=== PATIENT | male | born 1960 | race Caucasian/White ===

== ENCOUNTER 2016-10-21 18:11 | Observation (INO) | payer MEDICARE, OTHER ==
[2016-10-21] VITALS (7 sets, daily range): BP systolic 120–147; BP diastolic 73–86; PULSE 71–95; RESP 16–18; TEMP 97.6–98.7; O2SAT 95–97
[~2016-10-21] VITALS: Ht 167.6 cm; Wt 85.5 kg
[~2016-10-21 18:11] MED LIST: ADVAI100I PO; ALLO100T PO; BACT800T5 PO; CHLO10 PO; FOLI1 PO; THIA100T PO; VITA100T15 PO
[2016-10-21] MEDS ORDERED: SIMV20TA PO (18:38)
[2016-10-21] MEDS ORDERED: IBUP800T23 PO (18:38)
[2016-10-21] MEDS ORDERED: ATEN100T PO (18:38)
[2016-10-21] MEDS ORDERED: ALLO100T PO (18:38)
[2016-10-21] MEDS ORDERED: ADVA250A INH (18:38)
[2016-10-21] MEDS ORDERED: LISI-515 PO (18:38)
[2016-10-21] MEDS ORDERED: methylPREDNISolone SOD SUCC 125 MG/2 ML VIAL IVP ONE (19:00)
[2016-10-21] MEDS ORDERED: SODIUM CHLORIDE 0.9% FLUSH 5 ML FLUSH IVF PRN (19:00)
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
[2016-10-21] MEDS: RESP: ALBUTEROL 2.5 MG/IPRATROPIUM 0.5 MG NEB (SCH) INH ×2 (19:10→23:09)
[2016-10-21 19:23] LABS: AUTOMATED NEUTROPHIL # 2.8 TH/MM3 (1.8-7.7); BASOPHIL % 0.7 % (0.0-2.0); EOSINOPHIL # 0.1 TH/MM3 (0-0.4); EOSINOPHIL % 1.7 % (0.0-4.0); HEMO FLAGS DIFF FINAL; LYMPH % 32.4 % (9.0-44.0); LYMPHOCYTE # 1.6 TH/MM3 (1.0-4.8); MEAN CELL VOLUME 93.5 FL (80.0-100.0); MEAN CORPUSCULAR HEMOGLOBIN 32.5 PG (27.0-34.0); MEAN CORPUSCULAR HGB CONC 34.8 % (32.0-36.0); MONO % 11.7 % (0.0-8.0); NEUT % 53.5 % (16.0-70.0); PLATELET COUNT 115 TH/MM3 (150-450); RED BLOOD COUNT 2.89 MIL/MM3 (4.50-5.90); RED CELL DISTRIBUTION WIDTH 12.8 % (11.6-17.2); WHITE BLOOD COUNT 5.1 TH/MM3 (4.0-11.0)
[2016-10-21 19:39] LABS: APTT (PATIENT) 30.2 SEC (24.3-30.1); PROTHROMBIN TIME - PATIENT 11.3 SEC (9.8-11.6)
--- NOTE | 2016-10-21 19:50 | RADHPO ---
EXAM DATE/TIME: 10/21/2016 19:02 [facility] COMPARISON: CT THORAX W/O CONTRAST, June 29, 2016, 22:51. INDICATIONS : Shortness of breath. MEDICAL HISTORY : Hypercholesterolemia. Hypertension. Chronic obstructive pulmonary disease. Chronic kidney disease. SURGICAL HISTORY : Tonsillectomy. Appendectomy. Rotator cuff, left. Rotator cuff, right. ENCOUNTER: Initial ACUITY: 4 - 6 days PAIN SCORE: 0/10 LOCATION: Bilateral chest FINDINGS: A single view of the chest demonstrates a chronic right-sided pleural thickening and trace fluid with subsegmental atelectasis and scarring similar to June 29, 2016. Left lung is clear. Heart size no rmal. No pneumothorax. CONCLUSION: 1. Stable chronic scarring and atelectasis right lung base compared with June 2016. No new infiltr ate. Yayo Rodriguez MD on October 21, 2016 at 19:46 Board Certified Radiologist. This report was verified electronically.
[2016-10-21 20:07] LABS: ALKALINE PHOSPHATASE 65 U/L (45-117); ALT (GPT) 64 U/L (12-78); ANION GAP 10 MEQ/L (5-15); AST (GOT) 85 U/L (15-37); BICARBONATE 22.5 MEQ/L (21.0-32.0); BLOOD UREA NITROGEN 12 MG/DL (7-18); CHLORIDE 91 MEQ/L (98-107); CREATINE KINASE 114 U/L (39-308); GLOMERULAR FILTRATION RATE 96 ML/MIN (>89); POTASSIUM 4.6 MEQ/L (3.5-5.1); TOTAL BILIRUBIN ADULT 0.4 MG/DL (0.2-1.0)
[2016-10-21 20:09] LABS: SODIUM (NA) 123 MEQ/L (136-145)
[2016-10-21] MEDS ORDERED: SODIUM CHLOR 0.9% 1000 ML INJ 1,000 ML IV SCH (20:14)
[2016-10-21 20:30] LABS: CKMB 2.6 NG/ML (0.5-3.6)
[2016-10-21] MEDS ORDERED: SODIUM CHLORIDE 0.9% FLUSH 5 ML FLUSH FLUSH PRN (21:00)
[2016-10-21] MEDS: SODIUM CHLORIDE 0.9% FLUSH 5 ML FLUSH FLUSH SCH (21:00)
[2016-10-21] MEDS ORDERED: methylPREDNISolone SOD SUCC 125 MG/2 ML VIAL IVP SCH (21:00)
[2016-10-21] MEDS ORDERED: ACETAMINOPHEN 325 MG TAB PO PRN (21:00)
[2016-10-21] MEDS ORDERED: RESP: ALBUTEROL 2.5 MG/3 ML NEB (PRN) INH (21:00)
[2016-10-21] MEDS ORDERED: ONDANSETRON HCL 4 MG/2 ML VIAL IVP PRN (21:00)
[2016-10-21] MEDS ORDERED: LEVOFLOXACIN 750 MG PREMIX INJ 150 ML IV SCH (22:00)
[2016-10-21] MEDS: BUDESONIDE-FORMOTEROL 160/4.5 MCG INHALER INH SCH (22:01)
[2016-10-21] MEDS: HEPARIN SODIUM - SQ 10,000 UNITS/ML VIAL SQ SCH (22:05)
--- NOTE | 2016-10-21 22:12 | RADHPO ---
EXAM DATE/TIME: 10/21/2016 21:29 [facility] COMPARISON: CT THORAX W/O CONTRAST, June 29, 2016, 22:51. INDICATIONS : Shortness of breath for five days. RADIATION DOSE: 17.10 CTDIvol (mGy) MEDICAL HISTORY : Chronic obstructive pulmonary disease. Hypertension. SURGICAL HISTORY : None. ENCOUNTER: Initial ACUITY: 4 - 6 days PAIN SCALE: 0/10 LOCATION: chest TECHNIQUE: Volumetric scanning of the chest was performed. Using automated exposure control and adjustment of t he mA and/or kV according to patient size, radiation dose was kept as low as reasonably achievable to obtain optimal diagnostic quality images. FINDINGS: Comparison June 2016. There is chronic right basilar pleural disease with a small loculated pleura l effusion and multiple areas of rounded atelectasis at the right lung base, especially right middle lobe. There is minimal airspace disease left lung base which may represent a small pneumonia. Moderate to severe coronary calcifications are noted. No pericardial effusion. No adenopathy. Upper abdomen reveal slight lobulation of the liver most characteristic of cirrhosis. CONCLUSION: 1. Chronic right basilar pleural disease with small effusion, pleural thickening and rounded atelecta sis. Findings are similar to June 2016. There is some new minimal infiltrate at the left base sinc e 2015 that may represent a small bronchopneumonia. Yayo Rodriguez MD on October 21, 2016 at 22:06 Board Certified Radiologist. This report was verified electronically.
[2016-10-21] MEDS ORDERED: LORazepam 1 MG TAB PO PRN (22:15)
[2016-10-21] MEDS ORDERED: FLUMAZENIL 0.5 MG/5 ML VIAL IV PUSH PRN (22:15)
[2016-10-21] MEDS ORDERED: LORazepam 2 MG/ML VIAL IV PUSH PRN ×4 (22:15)
[2016-10-21] MEDS ORDERED: LORazepam 2 MG TAB PO PRN (22:15)
[2016-10-21] MEDS: SODIUM CHLOR 0.9% 1000 ML INJ 1,000 ML IV SCH (23:24)
[2016-10-22] MEDS: methylPREDNISolone SOD SUCC 125 MG/2 ML VIAL IVP SCH ×2 (02:36→08:42)
[2016-10-22 02:40] VITALS: BP 140/78; PULSE 109; RESP 20; TEMP 98; O2SAT 97
[2016-10-22] MEDS: RESP: ALBUTEROL 2.5 MG/IPRATROPIUM 0.5 MG NEB (SCH) INH ×3 (03:08→10:57)
[2016-10-22] MEDS ORDERED: IBUPROFEN 800 MG TAB PO PRN (03:30)
--- NOTE | 2016-10-22 04:58 | EKG ---
Date Performed: 10/21/2016 Time Performed: 19:04:38 PTAGE: 56 years EKG: Sinus rhythm Normal ECG NO SIGNIFICANT CHANGE FROM PRIOR ELECTROCARDIOGRAM. PREVIOUS TRACING : 06/30/2016 01.21 DOCTOR: Chi Rodrigues Interpretating Date/Time 10/22/2016 04:57:49
[2016-10-22 05:00] VITALS: BP 151/88; PULSE 102; RESP 20; TEMP 98.4; O2SAT 96
[2016-10-22 05:20] LABS: AUTOMATED NEUTROPHIL # 2.7 TH/MM3 (1.8-7.7); BASOPHIL % 0.7 % (0.0-2.0); EOSINOPHIL % 0.1 % (0.0-4.0); HEMATOCRIT 29.7 % (39.0-51.0); HEMO FLAGS DIFF FINAL; LYMPH % 8.4 % (9.0-44.0); LYMPHOCYTE # 0.2 TH/MM3 (1.0-4.8); MEAN CELL VOLUME 94.9 FL (80.0-100.0); MEAN CORPUSCULAR HEMOGLOBIN 31.8 PG (27.0-34.0); MEAN CORPUSCULAR HGB CONC 33.5 % (32.0-36.0); MONO % 0.9 % (0.0-8.0); NEUT % 89.9 % (16.0-70.0); PLATELET COUNT 115 TH/MM3 (150-450); RED BLOOD COUNT 3.13 MIL/MM3 (4.50-5.90); RED CELL DISTRIBUTION WIDTH 13.1 % (11.6-17.2); WHITE BLOOD COUNT 2.9 TH/MM3 (4.0-11.0)
[2016-10-22 05:34] LABS: CHLORIDE 98 MEQ/L (98-107); POTASSIUM 4.6 MEQ/L (3.5-5.1); SODIUM (NA) 132 MEQ/L (136-145)
[2016-10-22 05:43] LABS: ALT (GPT) 65 U/L (12-78); ANION GAP 13 MEQ/L (5-15); BICARBONATE 20.9 MEQ/L (21.0-32.0); BLOOD UREA NITROGEN 12 MG/DL (7-18)
[2016-10-22 05:44] LABS: AST (GOT) 74 U/L (15-37); GLOMERULAR FILTRATION RATE 69 ML/MIN (>89)
[2016-10-22 05:45] LABS: TOTAL BILIRUBIN ADULT 0.5 MG/DL (0.2-1.0)
[2016-10-22 05:49] LABS: ALKALINE PHOSPHATASE 65 U/L (45-117)
[2016-10-22] MEDS: HEPARIN SODIUM - SQ 10,000 UNITS/ML VIAL SQ SCH (06:26)
[2016-10-22 06:30] VITALS: BP 156/94; PULSE 98; RESP 18; TEMP 98.6; O2SAT 95
[2016-10-22 07:09] VITALS: BP 156/94; PULSE 107; RESP 16; TEMP 98.6; O2SAT 96
[2016-10-22 07:40] VITALS: O2SAT 96
[2016-10-22 08:00] VITALS: BP 164/98; PULSE 106; RESP 18; TEMP 98.3; O2SAT 96
[2016-10-22] MEDS: SODIUM CHLORIDE 0.9% FLUSH 5 ML FLUSH FLUSH SCH (08:43)
[2016-10-22] MEDS: SODIUM CHLOR 0.9% 1000 ML INJ 1,000 ML IV SCH (08:43)
[2016-10-22] MEDS: BUDESONIDE-FORMOTEROL 160/4.5 MCG INHALER INH SCH (08:43)
[2016-10-22] MEDS ORDERED: BUDESONIDE-FORMOTEROL 160/4.5 MCG INHALER INH SCH (09:00)
[2016-10-22] MEDS ORDERED: ALLOPURINOL 100 MG TAB PO SCH (09:00)
[2016-10-22] MEDS ORDERED: PRAVASTATIN SOD 40 MG TAB PO SCH (09:00)
[2016-10-22] MEDS ORDERED: ATENOLOL 100 MG TAB PO SCH (09:00)
[2016-10-22] MEDS ORDERED: LISINOPRIL 20 MG TAB PO SCH (09:00)
--- NOTE | 2016-10-22 11:19 | HHI.DCPOC ---
Discharge Care Plan Diagnosis: (1) Hyponatremia Goals to Promote Your Health * To prevent worsening of your condition and complications * To maintain your health at the optimal level Directions to Meet Your Goals Take your medications as prescribed Follow your dietary instruction Follow activity as directed Keep your appointments as scheduled Take your immunizations and boosters as scheduled If your symptoms worsen call your PCP, if no PCP go to Urgent Care Center or Emergency Room Smoking is Dangerous to Your Health. Avoid second hand smoke Call the 24-hour hour crisis hotline for domestic abuse at Cristal Hawkins MD Oct 22, 2016 11:18
--- NOTE | 2016-10-22 11:24 | HHI.HP ---
[facility] Primary Care Physician Non-Staff Admission Diagnosis hyponatremia, COPD exacerbation, alcohol intoxication Diagnoses: Chief Complaint: Sent by primary care provider Travel History International Travel<30 Days: No Contact w/Intl Traveler <30 Da: No Traveled to Known Affected Are: No History of Present Illness This patient is a 56-year-old gentleman with a history of chronic obstructive pulmonary disease and pleural effusion. Patient did come by his ambulance because his primary care doctor was worried about pleural effusion. He had an outpatient x-ray done 5 days ago and was called with results and told to come to the hospital yesterday. Patient says he is not short of breath he had no chest pain he has chronic dyspnea which is related to his chronic Pulmonary disease and improved with his home medications. Patient says he has been doing well at home. He denies fevers and chills. Patient had images done previously which are quite similar to ones done in the emergency room on my review. Patient does have Some hyponatremia also. Patient does drink quite a bit of alcohol daily and may have chronic pancytopenia and be potomania. Overnight patient had no new complaints today. Discharge plans discussed with patient and he would like to go home Review of Systems Constitutional: DENIES: Diaphoretic episodes, Fatigue, Fever, Weight gain, Weight loss, Chills, Dizziness, Change in appetite, Night Sweats Endocrine: DENIES: Heat/cold intolerance, Polydipsia, Polyuria, Polyphagia Eyes: DENIES: Blurred vision, Diplopia, Eye inflammation, Eye pain, Vision loss , Photosensitivity, Double Vision Ears, nose, mouth, throat: DENIES: Tinnitus, Hearing loss, Vertigo, Nasal discharge, Oral lesions, Throat pain, Hoarseness, Ear Pain, Running Nose, Epistaxis, Sinus Pain, Toothache, Odynophagia Respiratory: DENIES: Apneas, Cough, Snoring, Wheezing, Hemoptysis, Sputum production, Shortness of breath Cardiovascular: DENIES: Chest pain, Palpitations, Syncope, Dyspnea on Exertion , PND, Lower Extremity Edema, Orthopnea, Claudication Gastrointestinal: DENIES: Abdominal pain, Black stools, Bloody stools, Constipation, Diarrhea, Nausea, Vomiting, Difficulty Swallowing, Anorexia Genitourinary: DENIES: Sexual dysfunction, Urinary frequency, Urinary incontinence, Urgency, Hematuria, Dysuria, Nocturia, Penile Discharge, Testicular Pain, Testicular Swelling Musculoskeletal: DENIES: Joint pain, Muscle aches, Stiffness, Joint Swelling, Back pain, Neck pain Integumentary: DENIES: Abnormal pigmentation, Nail changes, Pruritus, Rash Hematologic/lymphatic: DENIES: Bruising, Lymphadenopathy Immunologic/allergic: DENIES: Eczema, Urticaria Neurologic: DENIES: Abnormal gait, Headache, Localized weakness, Paresthesias, Seizures, Speech Problems, Tremor, Poor Balance Psychiatric: DENIES: Anxiety, Confusion, Mood changes, Depression, Hallucinations, Agitation, Suicidal Ideation, Homicidal Ideation, Delusions Past Family Social History Past Medical History Chronic pleural effusion Chronic alcoholism Pancytopenia Hypertension COPD Past Surgical History Orthopedic surgeries Appendectomy Reported Medications Reviewed in the medical record, nothing new Allergies: Coded Allergies: No Known Allergies (Verified , 10/21/16) Active Ordered Medications Reviewed in the medical record Family History Family history of hypertension Social History Patient does drink quite a bit (alcohol 6 pack a day), no current tobacco Lives alone Physical Exam Vital Signs Vital Signs Date Time Temp Pulse Resp B/P Pulse Ox O2 Delivery O2 Flow Rate FiO2 10/22/16 08:00 98.3 106 18 164/98 96 10/22/16 07:40 96 21 10/22/16 07:09 98.6 107 16 156/94 96 Room Air 10/22/16 07:08 16 96 Room Air 10/22/16 06:30 98.6 98 18 156/94 95 Room Air 10/22/16 05:00 98.4 102 20 151/88 96 Room Air 10/22/16 03:30 20 96 Room Air 10/22/16 02:40 98.0 109 20 140/78 97 Room Air 10/21/16 23:30 18 95 Room Air 10/21/16 23:30 97.6 95 18 147/78 95 Room Air 10/21/16 21:30 82 18 137/73 95 Room Air 10/21/16 20:30 74 18 120/74 95 Room Air 10/21/16 19:30 18 96 Room Air 10/21/16 19:30 98.2 71 18 142/86 96 Room Air 10/21/16 19:15 96 Room Air 10/21/16 19:15 96 Room Air 10/21/16 19:08 96 21 10/21/16 18:30 16 97 Room Air 10/21/16 18:25 98.7 75 16 129/79 97 Physical Exam GENERAL: This is a well-nourished, well-developed patient, in no apparent distress. SKIN: No rashes, ecchymoses or lesions. Cool and dry. HEAD: Atraumatic. Normocephalic. No temporal or scalp tenderness. EYES: Pupils equal round and reactive. Extraocular motions intact. No scleral icterus. No injection or drainage. ENT: Nose without bleeding, purulent drainage or septal hematoma. Throat without erythema, tonsillar hypertrophy or exudate. Uvula midline. Airway patent. NECK: Trachea midline. No JVD or lymphadenopathy. Supple, nontender, no meningeal signs. CARDIOVASCULAR: Regular rate and rhythm without murmurs, gallops, or rubs. RESPIRATORY: Clear to auscultation. Breath sounds equal bilaterally. No wheezes , rales, or rhonchi. GASTROINTESTINAL: Abdomen soft, non-tender, nondistended. No hepato-splenomegaly , or palpable masses. No guarding. MUSCULOSKELETAL: Extremities without clubbing, cyanosis, or edema. No joint tenderness, effusion, or edema noted. No calf tenderness. Negative Homans sign bilaterally. NEUROLOGICAL: Awake and alert. Cranial nerves II through XII intact. Motor and sensory grossly within normal limits. Five out of 5 muscle strength in all muscle groups. Normal speech. Laboratory Laboratory Tests Test 10/21/16 10/22/16 19:10 05:05 White Blood Count 5.1 2.9 Red Blood Count 2.89 3.13 Hemoglobin 9.4 10.0 Hematocrit 27.0 29.7 Mean Corpuscular Volume 93.5 94.9 Mean Corpuscular Hemoglobin 32.5 31.8 Mean Corpuscular Hemoglobin 34.8 33.5 Concent Red Cell Distribution Width 12.8 13.1 Platelet Count 115 115 Mean Platelet Volume 7.0 6.6 Neutrophils (%) (Auto) 53.5 89.9 Lymphocytes (%) (Auto) 32.4 8.4 Monocytes (%) (Auto) 11.7 0.9 Eosinophils (%) (Auto) 1.7 0.1 Basophils (%) (Auto) 0.7 0.7 Neutrophils # (Auto) 2.8 2.7 Lymphocytes # (Auto) 1.6 0.2 Monocytes # (Auto) 0.6 0.0 Eosinophils # (Auto) 0.1 0.0 Basophils # (Auto) 0.0 0.0 CBC Comment DIFF FINAL DIFF FINAL Differential Comment Prothrombin Time 11.3 Prothromb Time International 1.0 Ratio Activated Partial 30.2 Thromboplast Time Sodium Level 123 132 Potassium Level 4.6 4.6 Chloride Level 91 98 Carbon Dioxide Level 22.5 20.9 Anion Gap 10 13 Blood Urea Nitrogen 12 12 Creatinine 0.83 1.10 Estimat Glomerular Filtration 96 69 Rate Random Glucose 83 180 Calcium Level 8.0 8.8 Total Bilirubin 0.4 0.5 Aspartate Amino Transf 85 74 (AST/SGOT) Alanine Aminotransferase 64 65 (ALT/SGPT) Alkaline Phosphatase 65 65 Total Creatine Kinase 114 Creatine Kinase MB 2.6 Troponin I LESS THAN 0.02 B-Type Natriuretic Peptide 85 Total Protein 7.4 8.0 Albumin 3.6 3.7 Ethyl Alcohol Level 198 Date/Time Procedure Status Source Growth 10/21/16 19:10 Influenza Types A,B Antigen (ANNEMARIE) - Final Complete Nasal Washing NEGATIVE FOR FLU A AND B ANTIGEN.... Result Diagram: 10/22/16 0505 10/22/16 0505 Imaging Last Impressions Chest X-Ray 10/21/16 1858 Signed Impressions: Service Date/Time: Friday, October 21, 2016 19:02 - CONCLUSION: 1. Stable chronic scarring and atelectasis right lung base compared with June 2016. No new infiltrate. Yayo Rodriguez MD Chest CT 10/21/16 0000 Signed Impressions: Service Date/Time: Friday, October 21, 2016 21:29 - CONCLUSION: 1. Chronic right basilar pleural disease with small effusion, pleural thickening and rounded atelectasis. Findings are similar to June 2016. There is some new minimal infiltrate at the left base since 2016 that may represent a small bronchopneumonia. Yayo Rodriguez MD Assessment and Plan Problem List: (1) Hyponatremia ICD Code: E87.1 Status: Acute Plan: Resolved with IV hydration (2) Pleural effusion ICD Code: J90 Status: Acute Plan: These are stable, small and asymptomatic. 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 Discussed at length with the patient was quite agreeable (3) Pancytopenia ICD Code: D61.818 Status: Acute Plan: Chronic, likely due to alcoholism, continue outpatient surveillance Assessment and Plan Discharge home Activity unrestricted Diet heart healthy Code Status Full code Discussed Condition With Patient, PT Cristal Hawkins MD Oct 22, 2016 11:24
--- NOTE | 2016-10-22 13:43 | EKG ---
Date Performed: 10/22/2016 Time Performed: 06:00:44 PTAGE: 56 years EKG: Sinus tachycardia Normal ECG except for rate COMPARED TO PRIOR ELECTROCARDIOGRAM, Rate has increased. PREVIOUS TRACING : 10/21/2016 19.04 DOCTOR: Chi Rodrigues Interpretating Date/Time 10/22/2016 13:42:29
== END 2016-10-22 11:25 | disposition home or self-care (01) ==
LOC: PHED 18:11 → PHEDA 20:51 → INTOOBSV 20:51 → PHEDH 10-22 00:51 → PH3B 10-22 08:04
PROVIDERS: ADMIT Hospitalist; ATTEND Hospitalist
DX: E87.1 Hypo-osmolality and hyponatremia (principal); F10.120 Alcohol abuse with intoxication, uncomplicated; J44.1 Chronic obstructive pulmonary disease with (acute) exacerbation; J44.0 Chronic obstructive pulmonary disease with (acute) lower respiratory infection; J18.0 Bronchopneumonia, unspecified organism; J90 Pleural effusion, not elsewhere classified; J98.11 Atelectasis; I12.9 Hypertensive chronic kidney disease with stage 1 through stage 4 chronic kidney disease, or unspecified chronic kidney disease; N18.9 Chronic kidney disease, unspecified; D61.818 Other pancytopenia; E78.00 Pure hypercholesterolemia, unspecified; H40.9 Unspecified glaucoma; M10.9 Gout, unspecified
CPT/HCPCS: 71010; 71250; 80053; 80320; 82550; 82552; 83880; 84484; 85025; 85610; 85730; 87804; 93005; 94640; 94664; 96374; 97162; 99285; J1644; J1956; J2060; J2930; J7030

== ENCOUNTER 2016-12-01 20:55 | Emergency (ER) | payer OTHER ==
[~2016-12-01 20:55] MED LIST changes: +ADVA250A INH; -ADVAI100I PO; +ATEN100T PO; -BACT800T5 PO; -CHLO10 PO; -FOLI1 PO; +IBUP800T23 PO; +LISI-515 PO; +SIMV20TA PO; -THIA100T PO; -VITA100T15 PO
== END 2016-12-01 21:04 | disposition left against medical advice (07) ==
LOC: PHED 20:55
DX: R68.89 Other general symptoms and signs (principal)
CPT/HCPCS: 99281

== ENCOUNTER → 2017-01-13 | Day surgery (SDC) | payer OTHER ==
[~2017-01-13] MED LIST changes: +BUPIVACAINE HCL PF 0.75% 30 ML VIAL ONE; +LACTATED RINGER'S 1000 ML INJ 1,000 ML ONE; +LIDOCAINE 1.5%/EPINEPHrine 1:200,000 PF SOLN 30 ML AMP ONE; +MIDAZOLAM HCL 5 MG/ML VIAL (1 ML) ONE; +PROPOFOL 200 MG/20 ML AMP IV ONE; +ceFAZolin 2 GM PREMIX 50 ML ONE
--- NOTE | 2017-01-14 07:10 | MP ---
cc: CADENCE SALGADO M.D. DATE OF SURGERY 01/13/2017 PREOPERATIVE DIAGNOSES Left shoulder rotator cuff tear. Left shoulder impingement syndrome. Left shoulder SLAP labral tear with biceps tear. POSTOPERATIVE DIAGNOSES Left shoulder rotator cuff tear. Left shoulder impingement syndrome. Left shoulder SLAP labral tear with biceps tear. PROCEDURE Left shoulder arthroscopic rotator cuff repair. Left shoulder arthroscopic subacromial decompression. Left shoulder arthroscopic extensive debridement of SLAP labral and biceps tear. SURGEON Dr. Cadence Salgado PHYSIOTHERAPIST'S ASSISTANT Tee Fernández PA-C ANESTHESIA General with interscalene block. ESTIMATED BLOOD LOSS Less than 10 cc. COMPLICATIONS None. IMPLANTS USED Arthrex. JUSTIFICATION This patient is a 56-year-old male who injured his left shoulder. He has had persistence of his pain and weakness in regards to this condition with failure of conservative. Clinical exam as well as MRI confirmed the above-named findings. The patient was counseled as to the risks, benefits and alternatives of the above-named proposed surgical procedure. He did wish to proceed with surgery. PROCEDURE IN DETAIL Written consent was obtained. The patient was identified by name. A scalene nerve block was administered to the left upper extremity by the anesthesiologist. The patient was taken to the operating room and general anesthesia was administered as well as 2 grams of IV Ancef. The patient was carefully turned to a right lateral decubitus position. A lateral arm roll was placed and all bony prominences and pressure points were well-padded. The patient's neck was carefully positioned, was carefully monitored and kept neutral. An arthroscopic arm rodríguez was gently applied to the left upper extremity with 10 pounds of traction placed, the left shoulder prepped and draped using isopropyl alcohol and Hibiclens solution and DuraPrep solution. A standard posterior and anterior glenohumeral arthroscopic portal was established. The glenohumeral joint revealed extensive evidence of labral tearing along the anterior, superior and posterior portions. There was evidence of partial biceps tendon tearing with fraying and fragmentation. An arthroscopic shaver was introduced in through the anterior portal and extensive debridement of the labrum was performed from the anterior, superior and posterior positions. There was evidence of biceps tearing which was also debrided. Grade 2 chondromalacia was noted of the glenohumeral joint. There was a massive rotator cuff tendon tear involving the supraspinatus and infraspinatus tendon. There was complete delamination of the tendon with a split longitudinal pattern. At this point the bur was used to perform a subacromial decompression. A shaver was used to perform bursectomy. The bur was used to perform an acromioplasty and the cautery device was used to release the coracoacromial ligament. The bur was used to decorticate the greater tuberosity in preparation for rotator cuff tendon repair. An Arthrex Scorpion device was then used to shuttle #2 FiberTape suture from a medial row Bio-SwiveLock anchor. The suture was set through the undersurface leaflet of the tendon and then a separate pass through the superior aspect. A #2 FiberLink was placed along the posterior portion as well. An anterior medial anchor was placed and again suture from anchor to include a FiberTape was passed through the inferior and subsequently superior leaflet. At this point an Arthrex double row SpeedBridge construct was then created with implantation of a posterior lateral and anterior lateral anchor. After appropriate tensioning of sutures and implantation of lateral row anchors, the rotator cuff repair was probed and noted to have good stability and fixation. The arthroscopic portals were closed with 3-0 Prolene sutures. Sterile dressings were applied. The patient was placed in a sling and swath immobilizer. He tolerated the procedure well. There were no intraoperative complications noted. Tee Fernández, physician operations manager assistant certified, was present during the entire procedure to include patient positioning and the procedure itself. The medical necessity of a physician operations manager assistant was indicated in this case due to the complexity of the procedure. He assisted with appropriate manipulation of the arm and also manipulation of the camera. He assisted with shuttling of sutures and also implantation of suture anchors for the purpose or rotator cuff tendon repair. Cadence Salgado MD JWM/SSB /3:44 PM /6:45 AM
== END | disposition home or self-care (01) ==
LOC: ESDC 13:08
PROVIDERS: ATTEND Orthopaedic Surgery Sports Medicine
DX: M75.122 Complete rotator cuff tear or rupture of left shoulder, not specified as traumatic (principal); M75.42 Impingement syndrome of left shoulder; S43.432A Superior glenoid labrum lesion of left shoulder, initial encounter; S46.212A Strain of muscle, fascia and tendon of other parts of biceps, left arm, initial encounter
CPT/HCPCS: 01630; 01991; 29823; 29826; 29827; 64417; C1713; J0690; J2250; J7120

== ENCOUNTER 2017-04-25 16:18 | Inpatient (IN) | payer OTHER, MEDICARE ==
[2017-04-25] VITALS (8 sets, daily range): BP systolic 93–172; BP diastolic 55–107; PULSE 62–70; RESP 16–20; TEMP 96.4–98.7; O2SAT 96–99
[~2017-04-25] VITALS: Ht 167.6 cm; Wt 87.2 kg
[~2017-04-25 16:18] MED LIST changes: -BUPIVACAINE HCL PF 0.75% 30 ML VIAL ONE; -LACTATED RINGER'S 1000 ML INJ 1,000 ML ONE; -LIDOCAINE 1.5%/EPINEPHrine 1:200,000 PF SOLN 30 ML AMP ONE; -MIDAZOLAM HCL 5 MG/ML VIAL (1 ML) ONE; -PROPOFOL 200 MG/20 ML AMP IV ONE; -ceFAZolin 2 GM PREMIX 50 ML ONE
[2017-04-25] MEDS ORDERED: SODIUM CHLORIDE 0.9% FLUSH 10 ML FLUSH IVF PRN (16:30)
[2017-04-25] MEDS ORDERED: SODIUM CHLOR 0.9% 1000 ML INJ 1,000 ML IV ONE (16:30)
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
[2017-04-25 16:47] LABS: AUTOMATED NEUTROPHIL # 6.6 TH/MM3 (1.8-7.7); BASOPHIL # 0.2 TH/MM3 (0-0.2); BASOPHIL % 2.1 % (0.0-2.0); EOSINOPHIL % 0.3 % (0.0-4.0); HEMATOCRIT 32.9 % (39.0-51.0); LYMPH % 17.6 % (9.0-44.0); LYMPHOCYTE # 1.7 TH/MM3 (1.0-4.8); MEAN CELL VOLUME 87.8 FL (80.0-100.0); MEAN CORPUSCULAR HEMOGLOBIN 29.5 PG (27.0-34.0); MEAN CORPUSCULAR HGB CONC 33.6 % (32.0-36.0); MONO % 12.9 % (0.0-8.0); NEUT % 67.1 % (16.0-70.0); PLATELET COUNT 248 TH/MM3 (150-450); RED BLOOD COUNT 3.75 MIL/MM3 (4.50-5.90); RED CELL DISTRIBUTION WIDTH 15.5 % (11.6-17.2); WHITE BLOOD COUNT 9.8 TH/MM3 (4.0-11.0)
[2017-04-25 16:50] LABS: HEMO FLAGS DIFF FINAL
--- NOTE | 2017-04-25 17:20 | RADRPT ---
EXAM DATE/TIME: 04/25/2017 16:44 [facility] COMPARISON: No previous studies available for comparison. INDICATIONS : Fall, pelvic area pain MEDICAL HISTORY : Chronic obstructive pulmonary disease. SURGICAL HISTORY : None. ENCOUNTER: Initial ACUITY: 2 days PAIN SCORE: 8/10 LOCATION: Bilateral pelvis FINDINGS: Single AP view of the pelvis. Bone alignment within normal limits. No evidence of fracture. CONCLUSION: No evidence of fracture. Vahid Collins MD on April 25, 2017 at 17:10 Board Certified Radiologist. This report was verified electronically.
--- NOTE | 2017-04-25 17:23 | RADRPT ---
EXAM DATE/TIME: 04/25/2017 16:47 [facility] COMPARISON: SPINE LUMBAR LTD (AP & LAT), November 25, 2009, 21:59. INDICATIONS : Fall, low back pain MEDICAL HISTORY : None. SURGICAL HISTORY : None. ENCOUNTER: Initial ACUITY: 2 days PAIN SCORE: 8/10 LOCATION: Bilateral low back FINDINGS: 4 views lumbar spine. Minimal superior end plate concavity of L3 and mild superior endplate concavity of T12 indicating age indeterminate minimal compression fracture deformities. No evidence of bony re tropulsion. These findings were not seen on the prior study of 2009. Small endplate osteophytes at mu ltiple levels of the lumbar spine. Moderate severity facet hypertrophy at L4-5 and L5-S1. Vacuum phen omenon in the L4-5 disc. Diffuse aortic calcification. CONCLUSION: Minimal age-indeterminate superior endplate compression fracture deformities at L3 and T12. Degenerat marcelle findings with moderate severity lower lumbar spine facet arthrosis. Vahid Collins MD on April 25, 2017 at 17:19 Board Certified Radiologist. This report was verified electronically.
[2017-04-25 17:42] LABS: CHLORIDE 91 MEQ/L (98-107); POTASSIUM 4.1 MEQ/L (3.5-5.1); SODIUM (NA) 129 MEQ/L (136-145)
[2017-04-25 17:47] LABS: ANION GAP 15 MEQ/L (5-15); BICARBONATE 22.8 MEQ/L (21.0-32.0); BLOOD UREA NITROGEN 43 MG/DL (7-18)
[2017-04-25 17:50] LABS: ALT (GPT) 43 U/L (12-78); AST (GOT) 75 U/L (15-37); GLOMERULAR FILTRATION RATE 11 ML/MIN (>89)
[2017-04-25 17:51] LABS: TOTAL BILIRUBIN ADULT 1.2 MG/DL (0.2-1.0)
[2017-04-25 17:53] LABS: ALKALINE PHOSPHATASE 107 U/L (45-117)
[2017-04-25 18:27] LABS: GLUCOSE,URINE NEG (NEG); KETONE, URINE TRACE mg/dL (NEG); NITRITE,URINE NEG (NEG); PH, URINE 5.5 (5.0-8.5)
[2017-04-25 18:29] LABS: BLOOD, URINE MOD (NEG); METHOD OF COLLECTION CLEAN CATCH; URINE COLOR YELLOW (YELLW/STRAW)
[2017-04-25 18:38] LABS: COMMENT (UR) CULT NOT INDICATED; COMMENT2 (UR) MUCOUS PRESENT; CULTURE IF INDICATED CULT NOT INDICATED; HYALINE CAST, URINE 0-2 /lpf (RARE); SQUAMOUS EPITHELIAL CELL URINE 0-5 /hpf (0-5); WBC, URINE 0-2 /hpf (0-5)
[2017-04-25 18:39] LABS: TRANSITIONAL EPI CELLS, URINE 0-5 /hpf
[2017-04-25] MEDS ORDERED: SODIUM CHLORIDE 0.9% FLUSH 10 ML FLUSH IV FLUSH PRN (19:00)
[2017-04-25] MEDS: SODIUM CHLOR 0.9% 1000 ML INJ 1,000 ML IV SCH (19:55)
[2017-04-25] MEDS: SODIUM CHLORIDE 0.9% FLUSH 10 ML FLUSH IV FLUSH SCH (21:00)
[2017-04-25] MEDS: ACETAMINOPHEN/HYDROcodone 325 MG/10 MG TAB PO PRN (21:40)
[2017-04-25] MEDS ORDERED: LORazepam 2 MG TAB PO PRN (22:15)
[2017-04-25] MEDS ORDERED: LORazepam 1 MG TAB PO PRN (22:15)
[2017-04-25] MEDS ORDERED: LORazepam 2 MG/ML VIAL IV PUSH PRN ×4 (22:15)
[2017-04-25] MEDS ORDERED: FLUMAZENIL 0.5 MG/5 ML VIAL IV PUSH PRN (22:15)
[2017-04-25] MEDS ORDERED: THIAMINE INJ 100 MG in SODIUM CHLORIDE 0.9% INJ 100 ML IV SCH (23:00)
[2017-04-26] VITALS (7 sets, daily range): BP systolic 109–175; BP diastolic 75–98; PULSE 59–68; RESP 16–20; TEMP 96.6–97.2; O2SAT 96–100
[2017-04-26] MEDS: ACETAMINOPHEN/HYDROcodone 325 MG/10 MG TAB PO PRN ×4 (01:25→23:14)
[2017-04-26] MEDS: MULTIVITAMIN INJ 10 ML, FOLIC ACID INJ 1 MG in SODIUM CHLORID 0.9% 500 ML INJ 500 ML IV SCH (05:44)
[2017-04-26] MEDS: SODIUM CHLOR 0.9% 1000 ML INJ 1,000 ML IV SCH ×3 (05:44→23:46)
[2017-04-26] MEDS: SODIUM CHLORIDE 0.9% FLUSH 10 ML FLUSH IV FLUSH SCH ×2 (09:00→21:00)
[2017-04-26] MEDS: PRAVASTATIN SOD 40 MG TAB PO SCH (09:09)
--- NOTE | 2017-04-26 09:34 | HHI.HP ---
[facility] Service [facility] Primary Care Physician No Primary Care Physician Admission Diagnosis acute renal failure Diagnoses: Travel History International Travel<30 Days: No Contact w/Intl Traveler <30 Da: No Traveled to Known Affected Are: No History of Present Illness 56-year-old male who presented to the emergency room for complaint of some balance and fall. He landed on his buttocks. He denied loss of consciousness. The patient is alcoholic. He states he quit drinking 7 or 8 days ago. He states he went through withdrawal at home. He denies any history of DTs. Evaluation in the emergency room revealed acute renal failure with a creatinine of 5. Patient reports has not been feeling well at home and has not been eating or drinking well. Review of Systems Constitutional: DENIES: Fever, Chills Eyes: DENIES: Vision loss Respiratory: DENIES: Cough, Shortness of breath Cardiovascular: DENIES: Chest pain, Palpitations Gastrointestinal: DENIES: Nausea, Vomiting Musculoskeletal: COMPLAINS OF: Back pain Neurologic: COMPLAINS OF: Poor Balance Past Family Social History Past Medical History Alcohol dependence Hypertension Gout Cirrhosis Past Surgical History Appendectomy Tonsillectomy Bilateral rotator cuff repair Reported Medications Reported Meds & Active Scripts Active Reported Simvastatin 20 Mg Tab 20 Mg PO DAILY Allopurinol 100 Mg Tab 100 Mg PO DAILY Atenolol 100 Mg Tab 100 Mg PO DAILY Lisinopril 20 Mg Tab 20 Mg PO BID Allergies: Coded Allergies: No Known Allergies (Verified , 04/25/17) Family History Reviewed and noncontributory. Social History Patient states he quit smoking 4 years ago. States he quit drinking alcohol 7 or 8 days ago. Normally drinks 6-12 beers a day. He denies illicit drug use. Physical Exam Vital Signs Vital Signs Date Time Temp Pulse Resp B/P Pulse Ox O2 Delivery O2 Flow Rate FiO2 04/26/17 04:08 97.0 60 20 175/98 100 04/26/17 02:25 20 04/26/17 01:03 97.0 61 16 124/79 98 04/26/17 00:31 59 04/25/17 22:47 139/93 04/25/17 21:01 96.4 67 20 167/107 98 04/25/17 20:10 98.7 67 18 108/77 98 Room Air 04/25/17 18:55 98.6 66 18 172/76 98 Room Air 04/25/17 17:50 62 20 118/68 97 04/25/17 17:09 66 16 100/55 74 18 106/60 72 16 93/58 04/25/17 16:38 96 04/25/17 16:25 98.1 70 20 109/59 99 Physical Exam GENERAL: This is a well-nourished, well-developed patient, in no acute distress. SKIN: No rashes, ecchymoses or lesions. Cool and dry. HEAD: Atraumatic. Normocephalic. No temporal or scalp tenderness. EYES: Pupils equal round and reactive. ENT: Nose without drainage. Throat without erythema, tonsillar hypertrophy or exudate. Uvula midline. Airway patent. NECK: Trachea midline. No JVD or lymphadenopathy. Supple, nontender, no meningeal signs. CARDIOVASCULAR: Regular rate and rhythm without murmurs, gallops, or rubs. RESPIRATORY: Clear to auscultation. Breath sounds equal bilaterally. No wheezes , rales, or rhonchi. GASTROINTESTINAL: Abdomen soft, non-tender, nondistended. No hepato-splenomegaly , or palpable masses. No guarding. MUSCULOSKELETAL: Some tenderness to palpation over the lumbar area NEUROLOGICAL: Awake and alert. Cranial nerves II through XII intact. Motor and sensory grossly within normal limits. Five out of 5 muscle strength in all muscle groups. Normal speech. Laboratory Laboratory Tests Test 04/25/17 04/25/17 04/25/17 16:35 17:20 18:10 White Blood Count 9.8 Red Blood Count 3.75 Hemoglobin 11.1 Hematocrit 32.9 Mean Corpuscular Volume 87.8 Mean Corpuscular Hemoglobin 29.5 Mean Corpuscular Hemoglobin 33.6 Concent Red Cell Distribution Width 15.5 Platelet Count 248 Mean Platelet Volume 6.9 Neutrophils (%) (Auto) 67.1 Lymphocytes (%) (Auto) 17.6 Monocytes (%) (Auto) 12.9 Eosinophils (%) (Auto) 0.3 Basophils (%) (Auto) 2.1 Neutrophils # (Auto) 6.6 Lymphocytes # (Auto) 1.7 Monocytes # (Auto) 1.3 Eosinophils # (Auto) 0.0 Basophils # (Auto) 0.2 CBC Comment DIFF FINAL Differential Comment Sodium Level 129 Potassium Level 4.1 Chloride Level 91 Carbon Dioxide Level 22.8 Anion Gap 15 Blood Urea Nitrogen 43 Creatinine 5.30 Estimat Glomerular Filtration 11 Rate Random Glucose 84 Calcium Level 10.0 Total Bilirubin 1.2 Aspartate Amino Transf 75 (AST/SGOT) Alanine Aminotransferase 43 (ALT/SGPT) Alkaline Phosphatase 107 Total Protein 9.5 Albumin 4.6 Ethyl Alcohol Level LESS THAN 3 Urine Collection Type CLEAN CATCH Urine Color YELLOW Urine Turbidity SLIGHT Urine pH 5.5 Urine Specific [place] 1.020 Urine Protein 100 Urine Glucose (UA) NEG Urine Ketones TRACE Urine Occult Blood MOD Urine Nitrite NEG Urine Bilirubin NEG Urine Leukocyte Esterase NEG Urine WBC 0-2 Urine Squamous Epithelial 0-5 Cells Urine Transitional Epithelial 0-5 Cells Urine Amorphous Sediment MOD Urine Hyaline Casts 0-2 Microscopic Urinalysis Comment CULT NOT INDICATED Urine Collection Time 1810 Result Diagram: 04/25/17 1635 04/25/17 1720 Imaging Last Impressions Pelvis X-Ray 04/25/17 0000 Signed Impressions: Service Date/Time: Tuesday, April 25, 2017 16:44 - CONCLUSION: No evidence of fracture. Vahid Collins MD Lumbar Spine X-Ray 04/25/17 0000 Signed Impressions: Service Date/Time: Tuesday, April 25, 2017 16:47 - CONCLUSION: Minimal age-indeterminate superior endplate compression fracture deformities at L3 and T12. Degenerative findings with moderate severity lower lumbar spine facet arthrosis. Vahid Collins MD Assessment and Plan Problem List: (1) Acute renal failure ICD Code: N17.9 Status: Acute Plan: This is likely due to prerenal azotemia from dehydration. Patient has been going through alcohol withdrawal at home. Continue aggressive fluid hydration. Increase IV fluid to 125 cc/h Avoid nephrotoxins Follow BMP in a.m. (2) Compression deformity of vertebra ICD Code: M43.9 Status: Acute Plan: Indeterminate age compression fractures. Pain management Physical therapy (3) Alcohol abuse ICD Code: F10.10 Status: Chronic Plan: Patient reports he went through withdrawal at home. States he quit drinking 7-8 days prior to admission Rally pack CIWA protocol. Does not appear to be withdrawing currently. (4) Hypertension ICD Code: I10 Status: Chronic Plan: Continue home dose of atenolol. Hold lisinopril for now given renal failure. Monitor blood pressures. Discussed Condition With Dr. Virgen Physician Certification 2 Midnight Certification Type: Admission for Inpatient Services Order for Inpatient Services The services are ordered in accordance with Medicare regulations or non- Medicare payer requirements, as applicable. In the case of services not specified as inpatient-only, they are appropriately provided as inpatient services in accordance with the 2-midnight benchmark. Estimated LOS (days): 3 days is the estimated time the patient will need to remain in the hospital, assuming treatment plan goals are met and no additional complications. Post-Hospital Plan: Not yet determined Problem Qualifiers (1) Acute renal failure: Qualified Code: N17.9 - Acute renal failure, unspecified acute renal failure type Reinaldo Castro MD Apr 26, 2017 09:34
[2017-04-26] MEDS ORDERED: INFLUENZA VIRUS VACCINE (QUADRIVALENT) 0.5 ML SYR IM ONE (10:00)
[2017-04-26] MEDS: ATENOLOL 100 MG TAB PO SCH (10:10)
[2017-04-26 11:11] LABS: AUTOMATED NEUTROPHIL # 3.5 TH/MM3 (1.8-7.7); BASOPHIL # 0.1 TH/MM3 (0-0.2); BASOPHIL % 0.9 % (0.0-2.0); EOSINOPHIL # 0.1 TH/MM3 (0-0.4); HEMATOCRIT 30.5 % (39.0-51.0); HEMO FLAGS DIFF FINAL; LYMPH % 18.7 % (9.0-44.0); LYMPHOCYTE # 1.1 TH/MM3 (1.0-4.8); MEAN CELL VOLUME 89.7 FL (80.0-100.0); MEAN CORPUSCULAR HEMOGLOBIN 29.3 PG (27.0-34.0); MEAN CORPUSCULAR HGB CONC 32.6 % (32.0-36.0); MONO % 14.9 % (0.0-8.0); NEUT % 64.5 % (16.0-70.0); PLATELET COUNT 162 TH/MM3 (150-450); RED CELL DISTRIBUTION WIDTH 14.7 % (11.6-17.2); WHITE BLOOD COUNT 5.6 TH/MM3 (4.0-11.0)
[2017-04-26 11:19] LABS: POTASSIUM 3.6 MEQ/L (3.5-5.1)
[2017-04-26 11:37] LABS: BICARBONATE 22.7 MEQ/L (21.0-32.0)
[2017-04-26] MEDS: ACETAMINOPHEN/HYDROcodone 325 MG/5 MG TAB PO PRN ×2 (14:26→18:45)
--- NOTE | 2017-04-26 16:13 | RADRPT ---
EXAM DATE/TIME: 04/26/2017 14:23 [facility] COMPARISON: US KIDNEY/RENAL/BLADDER, June 30, 2016, 18:39. INDICATIONS : Increased BUN/creatnine. MEDICAL HISTORY : Hypercholesterolemia. Hypertension. Arthritis. Glaucoma. Reading glasses. Head injury. Dizziness. Beny ateral pleural effusion. COPD. Wheezing. Liver failure. Chronic kidney disease. GOUT. SURGICAL HISTORY : Tonsillectomy. Appendectomy. Left arm repair. ENCOUNTER: Subsequent ACUITY: 1 day PAIN SCORE: 0/10 LOCATION: Bilateral flank MEASUREMENTS: RIGHT KIDNEY: 10.8 x 4.2 x 5.3 cm LEFT KIDNEY: 11.1 x 4.1 x 5.5 cm FINDINGS: RIGHT KIDNEY: Renal cortex is normal in thickness and echotexture. No hydronephrosis, stone, or mass. LEFT KIDNEY: Renal cortex is normal in thickness and echotexture. No hydronephrosis, stone, or mass. An 8 mm exop hytic cortical cyst involving the lower pole. BLADDER: Totally decompressed and contains a Snow balloon. CONCLUSION: No obstruction. Urinary bladder totally decompressed. Karlos Streeter Jr., MD on April 26, 2017 at 16:07 Board Certified Radiologist. This report was verified electronically.
[2017-04-26] MEDS ORDERED: ZOLPIDEM TARTRATE 5 MG TAB PO ONE (23:30)
[2017-04-27] VITALS (8 sets, daily range): BP systolic 119–161; BP diastolic 82–104; PULSE 63–77; RESP 18–20; TEMP 96.6–98.3; O2SAT 97–100
[2017-04-27] MEDS: ACETAMINOPHEN/HYDROcodone 325 MG/10 MG TAB PO PRN ×5 (04:06→20:31)
[2017-04-27 05:35] LABS: HEMATOCRIT 30.6 % (39.0-51.0); MEAN CELL VOLUME 88.8 FL (80.0-100.0); MEAN CORPUSCULAR HEMOGLOBIN 29.4 PG (27.0-34.0); MEAN CORPUSCULAR HGB CONC 33.1 % (32.0-36.0); PLATELET COUNT 157 TH/MM3 (150-450); RED BLOOD COUNT 3.45 MIL/MM3 (4.50-5.90); RED CELL DISTRIBUTION WIDTH 14.6 % (11.6-17.2); REVIEW FLAG FINAL; WHITE BLOOD COUNT 3.6 TH/MM3 (4.0-11.0)
[2017-04-27] MEDS: THIAMINE INJ 100 MG in SODIUM CHLORIDE 0.9% INJ 100 ML IV SCH (05:38)
[2017-04-27] MEDS: SODIUM CHLOR 0.9% 1000 ML INJ 1,000 ML IV SCH ×3 (05:39→21:28)
[2017-04-27] MEDS: MULTIVITAMIN INJ 10 ML, FOLIC ACID INJ 1 MG in SODIUM CHLORID 0.9% 500 ML INJ 500 ML IV SCH (05:39)
[2017-04-27 05:53] LABS: POTASSIUM 3.8 MEQ/L (3.5-5.1)
[2017-04-27 06:00] LABS: BICARBONATE 22.7 MEQ/L (21.0-32.0)
[2017-04-27] MEDS: ATENOLOL 100 MG TAB PO SCH (07:56)
[2017-04-27] MEDS: PRAVASTATIN SOD 40 MG TAB PO SCH (07:56)
[2017-04-27] MEDS: SODIUM CHLORIDE 0.9% FLUSH 10 ML FLUSH IV FLUSH SCH ×2 (09:00→20:29)
--- NOTE | 2017-04-27 10:55 | HHI.PR ---
Subjective Remarks Patient reports is feeling better today. A little more energized. Eating well. Objective Vitals Vital Signs Date Time Temp Pulse Resp B/P Pulse Ox O2 Delivery O2 Flow Rate FiO2 04/27/17 08:55 20 04/27/17 08:18 97.2 70 19 119/90 100 04/27/17 08:00 65 04/27/17 04:00 97.0 69 18 152/104 97 04/27/17 00:00 96.6 77 18 130/87 98 04/26/17 20:00 64 04/26/17 20:00 96.6 63 18 128/81 100 04/26/17 19:45 20 04/26/17 16:00 97.2 63 20 109/85 96 04/26/17 12:00 97.0 59 20 121/82 98 I/O 04/26/17 04/26/17 04/26/17 04/27/17 04/27/17 04/27/17 06:59 14:59 22:59 06:59 14:59 22:59 Intake Total 800 ml 1772 ml 1149 ml Output Total 450 ml 1225 ml 1250 ml Balance 350 ml -1225 ml 1772 ml -101 ml Intake Oral 240 ml IV Total 800 ml 1772 ml 909 ml Output Urine Total 450 ml 1225 ml 1250 ml # Bowel Movements 0 Result Diagram: 04/27/17 0430 04/27/17 0430 Imaging Last Impressions Renal Ultrasound 04/26/17 0000 Signed Impressions: Service Date/Time: Wednesday, April 26, 2017 14:23 - CONCLUSION: No obstruction. Urinary bladder totally decompressed. Karlos Streeter Jr., MD Pelvis X-Ray 04/25/17 0000 Signed Impressions: Service Date/Time: Tuesday, April 25, 2017 16:44 - CONCLUSION: No evidence of fracture. Vahid Collins MD Lumbar Spine X-Ray 04/25/17 0000 Signed Impressions: Service Date/Time: Tuesday, April 25, 2017 16:47 - CONCLUSION: Minimal age-indeterminate superior endplate compression fracture deformities at L3 and T12. Degenerative findings with moderate severity lower lumbar spine facet arthrosis. Vahid Collins MD Objective Remarks GENERAL: Patient appearing older than stated age, in no apparent distress. CARDIOVASCULAR: Normal rate and regular rhythm without murmurs, gallops, or rubs. RESPIRATORY: Good respiratory efforts. Breath sounds equal and clear to auscultation bilaterally. GASTROINTESTINAL: Abdomen soft, non-tender, non-distended. Normal active bowel sounds MUSCULOSKELETAL: Extremities without cyanosis, or edema. NEURO: Alert & Oriented x4 to person, place, time, situation. Moves all ext x4 PSYCH: Appropriate mood and affect. A/P Problem List: (1) Acute renal failure ICD Code: N17.9 Status: Acute Plan: This is likely due to prerenal azotemia from dehydration. Patient has been going through alcohol withdrawal at home. - Renal functions much improved today. Creatinine down to 1.4 from 5 on admission. Continue IV fluid. Decreased to 100 cc/h Avoid nephrotoxins Follow BMP in a.m. MAJO Snow (2) Compression deformity of vertebra ICD Code: M43.9 Status: Acute Plan: Indeterminate age compression fractures. Pain management Physical therapy (3) Alcohol abuse ICD Code: F10.10 Status: Chronic Plan: Patient reports he went through withdrawal at home. States he quit drinking 7-8 days prior to admission Rally pack CIWA protocol. Does not appear to be withdrawing currently. (4) Hypertension ICD Code: I10 Status: Chronic Plan: Continue home dose of atenolol. Hold lisinopril for now given renal failure. Monitor blood pressures. Discharge Planning Possible discharge tomorrow if he continues to improve. Problem Qualifiers (1) Acute renal failure: Qualified Code: N17.9 - Acute renal failure, unspecified acute renal failure type Reinaldo Castro MD Apr 27, 2017 10:54
[2017-04-28] VITALS: BP 172/93; PULSE 65; RESP 20; TEMP 96.7; O2SAT 99
[2017-04-28] MEDS: ACETAMINOPHEN/HYDROcodone 325 MG/10 MG TAB PO PRN ×2 (00:43→05:35)
[2017-04-28 04:00] VITALS: BP 145/86; PULSE 60; RESP 20; TEMP 97.9; O2SAT 99
[2017-04-28] MEDS: THIAMINE INJ 100 MG in SODIUM CHLORIDE 0.9% INJ 100 ML IV SCH (05:33)
[2017-04-28] MEDS: MULTIVITAMIN INJ 10 ML, FOLIC ACID INJ 1 MG in SODIUM CHLORID 0.9% 500 ML INJ 500 ML IV SCH (05:34)
[2017-04-28] MEDS: SODIUM CHLOR 0.9% 1000 ML INJ 1,000 ML IV SCH (05:34)
[2017-04-28 06:12] LABS: BICARBONATE 25.2 MEQ/L (21.0-32.0)
[2017-04-28] MEDS: SODIUM CHLORIDE 0.9% FLUSH 10 ML FLUSH IV FLUSH SCH (07:44)
[2017-04-28] MEDS ORDERED: HYDR-3516 PO (08:54)
--- NOTE | 2017-04-28 08:54 | HHI.DCPOC ---
Discharge Care Plan Diagnosis: (1) Acute renal failure (2) Hypertension (3) Compression deformity of vertebra (4) Alcohol abuse Goals to Promote Your Health * To prevent worsening of your condition and complications * To maintain your health at the optimal level Directions to Meet Your Goals Take your medications as prescribed Follow your dietary instruction Follow activity as directed Keep your appointments as scheduled Take your immunizations and boosters as scheduled If your symptoms worsen call your PCP, if no PCP go to Urgent Care Center or Emergency Room Smoking is Dangerous to Your Health. Avoid second hand smoke Call the 24-hour hour crisis hotline for domestic abuse at Reinaldo Castro MD Apr 28, 2017 08:53
[2017-04-28] MEDS ORDERED: THIAMINE HCL 100 MG TAB PO SCH (09:00)
[2017-04-28 09:06] VITALS: PULSE 65
[2017-04-28] MEDS: PRAVASTATIN SOD 40 MG TAB PO SCH (09:10)
[2017-04-28] MEDS: ATENOLOL 100 MG TAB PO SCH (09:10)
[2017-04-28 09:14] VITALS: BP 133/87; PULSE 65; RESP 20; TEMP 97.4; O2SAT 99
--- NOTE | 2017-04-28 12:20 | HHI.DS ---
Discharge Summary Admission Date Apr 25, 2017 at 18:15 Discharge Date: Apr 28, 2017 Admitting Diagnosis acute renal failure (1) Acute renal failure ICD Code: N17.9 (2) Compression deformity of vertebra ICD Code: M43.9 (3) Alcohol abuse ICD Code: F10.10 (4) Hypertension ICD Code: I10 Procedures None Brief History - From Admission 56-year-old male who presented to the emergency room for complaint of some balance and fall. He landed on his buttocks. He denied loss of consciousness. The patient is alcoholic. He states he quit drinking 7 or 8 days ago. He states he went through withdrawal at home. He denies any history of DTs. Evaluation in the emergency room revealed acute renal failure with a creatinine of 5. Patient reports has not been feeling well at home and has not been eating or drinking well. CBC/BMP: 04/27/17 0430 04/28/17 0517 Significant Findings Laboratory Tests Test 04/25/17 04/25/17 04/25/17 04/26/17 16:35 17:20 18:10 10:50 Red Blood Count 3.75 MIL/MM3 3.40 MIL/MM3 (4.50-5.90) (4.50-5.90) Hemoglobin 11.1 GM/DL 9.9 GM/DL (13.0-17.0) (13.0-17.0) Hematocrit 32.9 % 30.5 % (39.0-51.0) (39.0-51.0) Mean Platelet Volume 6.9 FL 6.1 FL (7.0-11.0) (7.0-11.0) Monocytes (%) (Auto) 12.9 % 14.9 % (0.0-8.0) (0.0-8.0) Basophils (%) (Auto) 2.1 % (0.0-2.0) Monocytes # (Auto) 1.3 TH/MM3 (0-0.9) Sodium Level 129 MEQ/L 130 MEQ/L (136-145) (136-145) Chloride Level 91 MEQ/L 96 MEQ/L (98-107) (98-107) Blood Urea Nitrogen 43 MG/DL (7-18) 42 MG/DL (7-18) Creatinine 5.30 MG/DL 2.50 MG/DL (0.60-1.30) (0.60-1.30) Estimat Glomerular Filtration 11 ML/MIN (>89) 27 ML/MIN (>89) Rate Total Bilirubin 1.2 MG/DL (0.2-1.0) Aspartate Amino Transf 75 U/L (15-37) (AST/SGOT) Total Protein 9.5 GM/DL (6.4-8.2) Urine Protein 100 mg/dL (NEG-TRACE) Urine Ketones TRACE mg/dL (NEG) Urine Occult Blood MOD (NEG) Test 04/27/17 04/28/17 04:30 05:17 White Blood Count 3.6 TH/MM3 (4.0-11.0) Red Blood Count 3.45 MIL/MM3 (4.50-5.90) Hemoglobin 10.1 GM/DL (13.0-17.0) Hematocrit 30.6 % (39.0-51.0) Mean Platelet Volume 6.5 FL (7.0-11.0) Blood Urea Nitrogen 30 MG/DL (7-18) Creatinine 1.40 MG/DL (0.60-1.30) Estimat Glomerular Filtration 52 ML/MIN (>89) 79 ML/MIN (>89) Rate Imaging Last Impressions Renal Ultrasound 04/26/17 0000 Signed Impressions: Service Date/Time: Wednesday, April 26, 2017 14:23 - CONCLUSION: No obstruction. Urinary bladder totally decompressed. Karlos Streeter Jr., MD Pelvis X-Ray 04/25/17 0000 Signed Impressions: Service Date/Time: Tuesday, April 25, 2017 16:44 - CONCLUSION: No evidence of fracture. Vahid Collins MD Lumbar Spine X-Ray 04/25/17 0000 Signed Impressions: Service Date/Time: Tuesday, April 25, 2017 16:47 - CONCLUSION: Minimal age-indeterminate superior endplate compression fracture deformities at L3 and T12. Degenerative findings with moderate severity lower lumbar spine facet arthrosis. Vahid Collins MD PE at Discharge GENERAL: Patient appearing older than stated age, in no apparent distress. CARDIOVASCULAR: Normal rate and regular rhythm without murmurs, gallops, or rubs. RESPIRATORY: Good respiratory efforts. Breath sounds equal and clear to auscultation bilaterally. GASTROINTESTINAL: Abdomen soft, non-tender, non-distended. Normal active bowel sounds MUSCULOSKELETAL: Extremities without cyanosis, or edema. NEURO: Alert & Oriented x4 to person, place, time, situation. Moves all ext x4 PSYCH: Appropriate mood and affect. Pt update on day of discharge Patient reports he is feeling well today. We discussed discharge planning at length. He was strongly advised to stop drinking alcohol. He states he will no longer drink. Hospital Course 56-year-old male alcoholic admitted with acute renal failure and fall. Evaluation and treatment course detailed below: Acute renal failure: This is likely due to prerenal azotemia from dehydration. Patient has been going through alcohol withdrawal at home. He was hydrated aggressively with IV fluid. He is renal function returned to normal from a creatinine of 5 on admission. A Snow catheter was placed for accurate output measurement. This was later discontinued and the patient did not have any problems with voiding. He is advised to stay hydrated and stop drinking alcohol. Compression deformity of vertebra - Indeterminate age compression fractures. Pain management. Patient was followed by PT. Alcohol abuse -Patient reports he went through withdrawal at home. States he quit drinking 7- 8 days prior to admission Treated with Rally pack and CIWA protocol. Did not appear to be withdrawing. Hypertension Continue home dose of atenolol. Lisinopril initially held. This was resumed. Continue same home dose medications. . Pt Condition on Discharge: Good Discharge Disposition: Discharge Home Discharge Time: <= 30 minutes Discharge Instructions DIET: Follow Instructions for: As Tolerated, No Restrictions Activities you can perform: Regular-No Restrictions Follow up Referrals: PCP Follow-up New Medications: Hydrocodone-Acetaminophen (Hydrocodone-Acetaminophen) 5-325 mg Tab 1 TAB PO Q4H PRN severe pain #15 TAB Continued Medications: Allopurinol (Allopurinol) 100 Mg Tab 100 MG PO DAILY Gout #30 Ref 0 TAB Atenolol (Atenolol) 100 Mg Tab 100 MG PO DAILY Blood Pressure Management #30 Ref 0 TAB Lisinopril (Lisinopril) 20 Mg Tab 20 MG PO BID #30 Ref 0 TAB Simvastatin (Simvastatin) 20 Mg Tab 20 MG PO DAILY Cholesterol Management #30 Ref 0 TAB Reinaldo Castro MD Apr 28, 2017 12:20
[2017-04-29] MEDS ORDERED: THIAMINE HCL 100 MG TAB PO SCH ×2 (09:00)
== END 2017-04-28 11:14 | disposition home or self-care (01) | DRG 683 ==
LOC: PHED 16:18 → PHEDA 18:15 → PH3B 21:05
PROVIDERS: ADMIT Family Medicine; ATTEND Family Medicine
DX: N17.9 Acute kidney failure, unspecified (principal); S32.030A Wedge compression fracture of third lumbar vertebra, initial encounter for closed fracture; S22.080A Wedge compression fracture of T11-T12 vertebra, initial encounter for closed fracture; K74.60 Unspecified cirrhosis of liver; I10 Essential (primary) hypertension; J44.9 Chronic obstructive pulmonary disease, unspecified; M19.90 Unspecified osteoarthritis, unspecified site; M10.9 Gout, unspecified; E86.0 Dehydration; W01.0XXA Fall on same level from slipping, tripping and stumbling without subsequent striking against object, initial encounter; F10.10 Alcohol abuse, uncomplicated; Z87.891 Personal history of nicotine dependence; Z87.820 Personal history of traumatic brain injury
CPT/HCPCS: 72100; 72170; 76775; 80048; 80053; 80307; 81001; 85025; 85027; 96360; 96361; J3411; J7030; J7040

== ENCOUNTER 2018-08-16 15:43 | Inpatient (IN) ==
[2018-08-16 17:42] LABS: Eos # (Auto) 0.1 th/mm3 (0.0-0.4); Eos % (Auto) 1.7 % (0.0-4.0); Hematocrit 27.7 % (39.0-51.0); Hemoglobin 9.2 gm/dL (13.0-17.0); Lymph # (Auto) 1.8 th/mm3 (1.0-4.8); Lymph % (Auto) 39.7 % (9.0-44.0); Mean Corpuscular HGB Conc 33.2 % (32.0-36.0); Mean Corpuscular Hemoglobin 28.7 pg (27.0-34.0); Mean Corpuscular Volume 86.4 fL (80.0-100.0); Mean Platelet Volume 7.6 fL (7.0-11.0); Mono # (Auto) 0.6 th/mm3 (0.0-0.9); Mono % (Auto) 13.2 % (0.0-8.0); Neut # (Auto) 2.1 th/mm3 (1.8-7.7); Neut % (Auto) 44.4 % (16.0-70.0); Platelet Count 142 th/mm3 (150-450); Red Blood Count 3.21 mil/mm3 (4.50-5.90); Red Cell Distribution Width 18.9 % (11.6-17.2); White Blood Count 4.6 th/mm3 (4.0-11.0)
--- NOTE | 2018-08-16 17:43 | ED ---
HPI General Chief complaint: Recheck/Abnormal Lab/Rx Stated complaint: Dr sent/Low sodium Time Seen by Provider: 08/16/18 17:25 History of Present Illness HPI narrative: 57-year-old man was sent here for evaluation of low serum sodium at office visit from previous day. Patient was asymptomatic at time of notification, comes to the emergency department, and since arrival here, has developed some nonspecific dizziness, even while he was laying down. He does not feel weak, has no focal neurologic symptoms, no difficulty breathing, no chest pain, no abdominal pain, no nausea or vomiting. Past medical history is significant for chronic alcohol use, which he reports is active, having drunk today, as well as hypertension, as well as chronic kidney injury, and treatment in April 2017 for acute renal failure with a creatinine of 5. Patient is not aware of the status of his kidney, does not undergo dialysis, and takes medication for hypertension, hyperlipidemia, COPD, as well as for gout. Patient is a former smoker, no longer active. Related Data Home Medications Medication Instructions Recorded Confirmed allopurinol 0 mg PO DAILY 08/16/18 08/16/18 atenolol 100 mg PO DAILY 08/16/18 08/16/18 lisinopril 0 mg PO DAILY 08/16/18 08/16/18 simvastatin 0 mg PO QPM 08/16/18 08/16/18 Allergies Allergy/AdvReac Type Severity Reaction Status Date / Time No Known Allergies Allergy Verified 08/16/18 15:49 Review of Systems ROS: all other systems reviewed are negative Constitutional Denies body ache(s), Denies chills, Denies fatigue, Denies fever(s), Denies headache(s), Denies lethargy, Denies malaise and Denies weakness Cardiovascular Denies chest pain and Denies syncope Respiratory Denies chest congestion and Denies wheezing Gastrointestinal Denies abdominal pain, Denies melena, Denies hematochezia, Denies diarrhea, Denies nausea and Denies hematemesis Musculoskeletal Denies back pain Neurologic Reports dizziness, Denies focal weakness and Denies paresthesias [facility] Medical History Medical History COPD (chronic obstructive pulmonary disease) (Acute) ETOH abuse (Acute) Gout (Acute) HTN (hypertension) (Acute) Surgical History Surgical History Hx of appendectomy (Acute) Social History Social History Substance History: Active Abuse Smoking Status: Former smoker How Often Do You Have a Drink Containing Alcohol: 4 or more times a week Substance Abuse Detail Alcohol: Substance Use Status: Active Route Used Substance Abuse: By Mouth Substance Abuse Comment: pt has 6-10 drinks a day Immunization History Tetanus Immunization: Unsure Exam Narrative Exam Narrative: GENERAL: Middle-aged man, moderately obese, afebrile, vital signs stable, awake and oriented, no acute distress SKIN: Focused skin assessment warm/dry. HEAD: Atraumatic. Normocephalic. EYES: Pupils equal and round. No scleral icterus. No injection or drainage. ENT: No nasal bleeding or discharge. Mucous membranes pink and moist. NECK: Trachea midline. No JVD. CARDIOVASCULAR: Regular rate and rhythm. No murmur appreciated. RESPIRATORY: No accessory muscle use. Clear to auscultation. Breath sounds equal bilaterally. GASTROINTESTINAL: Abdomen pendulous, generally soft, nontender, mildly distended , no definite ascites. Hepatic and splenic margins not palpable. MUSCULOSKELETAL: No obvious deformities. No clubbing. No cyanosis. No edema. NEUROLOGICAL: Awake and alert. No obvious cranial nerve deficits. Motor grossly within normal limits. Normal speech. PSYCHIATRIC: Appropriate mood and affect; insight and judgment normal. Course Initial Documented Vital Signs Temperature 97.6 F 08/16/18 15:47 Pulse Rate 68 08/16/18 15:47 Respiratory Rate 16 08/16/18 15:47 Blood Pressure 152/74 H 08/16/18 15:47 Pulse Oximetry 97 08/16/18 15:47 Last Documented Vital Signs Temperature 97.6 F 08/16/18 15:47 Pulse Rate 63 08/16/18 17:45 Respiratory Rate 16 08/16/18 17:45 Blood Pressure 133/77 08/16/18 17:45 Pulse Oximetry 97 08/16/18 17:45 Critical Care Time Critical Care Time: Yes Total Critical Care Time: 30 Attestation: 30 minutes of critical care time was provided in assessing and stabilizing this patient with acute hyponatremia, which is potentially life- threatening, and patient at risk for significant imminent deterioration or permanent cerebral impairment in the absence of acute stabilizing treatment. No billable procedures performed during this patient encounter. Medical Decision Making MDM Narrative Medical decision making narrative: Patient has a severe hyponatremia, although this is asymptomatic, it is potentially life-threatening, patient needs admission for correction, saline infusion begun, patient was withheld from fluids and will be admitted for continuation of correction. He is stable otherwise with stable EKG, and no additional physical complaints. Dr. Santana consulted at 1910 hrs., and will admit patient for further care. Medical Screen Exam Complete: Yes Emergency Medical Condition: Yes Differential Diagnosis Differential Diagnosis: Hyponatremia, hyperkalemia, alcohol abuse, fluid overload Lab Data Result diagrams: 08/16/18 17:30 08/16/18 17:30 Lab Results 08/16/18 08/16/18 08/16/18 Range/Units 17:30 17:30 17:55 CBC w Diff Auto diff final WBC 4.6 (4.0-11.0) th/mm3 RBC 3.21 L (4.50-5.90) mil/mm3 Hgb 9.2 L (13.0-17.0) gm/dL Hct 27.7 L (39.0-51.0) % MCV 86.4 (80.0-100.0) fL MCH 28.7 (27.0-34.0) pg MCHC 33.2 (32.0-36.0) % RDW 18.9 H (11.6-17.2) % Plt Count 142 L (150-450) th/mm3 MPV 7.6 (7.0-11.0) fL Neut % (Auto) 44.4 (16.0-70.0) % Lymph % (Auto) 39.7 (9.0-44.0) % Fisher % (Auto) 13.2 H (0.0-8.0) % Eos % (Auto) 1.7 (0.0-4.0) % Baso % (Auto) 1.0 (0.0-2.0) % Neut # (Auto) 2.1 (1.8-7.7) th/mm3 Lymph # (Auto) 1.8 (1.0-4.8) th/mm3 Fisher # (Auto) 0.6 (0.0-0.9) th/mm3 Eos # (Auto) 0.1 (0.0-0.4) th/mm3 Baso # (Auto) 0.0 (0.0-0.2) th/mm3 WBC Differential . Differential Comment . Sodium 117 L* (136-145) meq/L Potassium 4.3 (3.5-5.1) meq/L Chloride 85 L (98-107) meq/L Carbon Dioxide 21.3 (21.0-32.0) meq/L Anion Gap 11 (5-15) meq/L BUN 8 (7-18) mg/dL Creatinine 0.85 (0.60-1.30) mg/dL Estimated GFR Greater than 89 (>89) mL/min Random Glucose 82 (74-106) mg/dL Calcium 8.1 L (8.5-10.1) mg/dL Total Bilirubin 0.9 (0.2-1.0) mg/dL AST 75 H (15-37) U/L ALT 55 (12-78) U/L Alkaline Phosphatase 51 (45-117) U/L Total Protein 7.3 (6.4-8.2) g/dL Albumin 3.9 (3.4-5.0) g/dL Ur Collection Type Clean catch Urine Color Yellow (Yellw/Straw) Urine Clarity Clear (Clear) Urine pH 5.5 (5.0-8.5) Ur Specific Adel Less/equal 1.005 (1.002-1.035) Urine Protein Negative (Neg-Trace) mg/dL Urine Glucose (UA) Negative (Negative) mg/dL Urine Ketones Negative (Negative) mg/dL Urine Occult Blood Negative (Negative) Urine Nitrate Negative (Negative) Urine Bilirubin Negative (Negative) Urine Urobilinogen 0.2 (Less than 2) mg/dL Ur Leukocyte Esterase Negative (Negative) Urine RBC 0-3 (0-3) /hpf Ur Squamous Epith Cells 0-5 (0-5) /hpf Ur Microscopic Review Microscopic reviewed Serum Alcohol 306 H (0-5) mg/dL ECG Data EKG Prior to Arrival: No Prior ECG tracings: available for review Interpretation: EKG taken at 1751 hrs. is normal. Baseline rhythm is sinus at 61 bpm. NM interval normal at 186 ms, QT interval normal at 427 ms corrected. QRS morphology is normal with normal axis of -1 degrees, and QR S interval at [address] segments and T waves are normal, there is no significant change from prior tracing of April 25, 2017. Discharge Plan Discharge Disposition Patient Disposition: ED Admit(ED Internal Use Only) Discharge Condition Condition: Stable Discharge Order Discharge Orders: ED Use Only Admit Order (Routine); Ordered 08/16/18 Ordered By: Sal Jenkins Discharge Details Diagnosis: Acute hyponatremia, Alcohol abuse, Alcohol intoxication Physicians Team ED Provider: Sal Jenkins Primary Care Provider: Bradly Padilla Attending Provider: Melissa Santana Status ED Status: With Doctor
[2018-08-16] MEDS: Sod Chloride 0.9% Inj 1,000 ML IV.CONT SCH (17:49)
[2018-08-16 18:00] LABS: Bilirubin,Urine Negative (Negative); Clarity,Urine Clear (Clear); Color,Urine Yellow (Yellw/Straw); Glucose,Urine (UA) Negative (Negative); Leukocyte Esterase,Urine Negative (Negative); Nitrite,Urine Negative (Negative); PH,Urine 5.5 (5.0-8.5); Specific Gravity,Urine Less/Equal 1.005 (1.002-1.035); Urobilinogen,Urine 0.2 mg/dL (Less than 2)
[2018-08-16 18:07] LABS: RBC,Urine 0-3 /hpf (0-3); Squamous Epithelial Cell,Urine 0-5 /hpf (0-5)
[2018-08-16 18:09] LABS: Alanine Aminotransferase 55 U/L (12-78); Albumin 3.9 g/dL (3.4-5.0); Alkaline Phosphatase 51 U/L (45-117); Anion Gap 11 meq/L (5-15); Aspartate Aminotransferase 75 U/L (15-37); Blood Urea Nitrogen 8 mg/dL (7-18); Calcium 8.1 mg/dL (8.5-10.1); Carbon Dioxide 21.3 meq/L (21.0-32.0); Chloride 85 meq/L (98-107); Glomerular Filtration Rate Greater Than 89 mL/min (>89); Glucose,Random 82 mg/dL (74-106); Potassium 4.3 meq/L (3.5-5.1); Total Protein 7.3 g/dL (6.4-8.2)
[2018-08-16 18:10] LABS: Alcohol 306 mg/dL (0-5)
[2018-08-16 18:11] LABS: Sodium 117 meq/L (136-145)
[2018-08-16] MEDS ORDERED: Haloperidol Inj 5 MG/ML Ampul IV.PUSH PRN (19:07)
[2018-08-16] MEDS ORDERED: LORazepam 1 MG Tablet PO PRN (19:07)
[2018-08-16 20:06] LABS: Baso % (Auto) 0.5 % (0.0-2.0); Eos # (Auto) 0.1 th/mm3 (0.0-0.4); Eos % (Auto) 1.5 % (0.0-4.0); Hematocrit 29.5 % (39.0-51.0); Hemoglobin 9.5 gm/dL (13.0-17.0); Lymph # (Auto) 1.9 th/mm3 (1.0-4.8); Lymph % (Auto) 42.6 % (9.0-44.0); Mean Corpuscular HGB Conc 32.3 % (32.0-36.0); Mean Corpuscular Hemoglobin 28.2 pg (27.0-34.0); Mean Corpuscular Volume 87.3 fL (80.0-100.0); Mean Platelet Volume 6.8 fL (7.0-11.0); Mono # (Auto) 0.5 th/mm3 (0.0-0.9); Mono % (Auto) 11.1 % (0.0-8.0); Neut # (Auto) 1.9 th/mm3 (1.8-7.7); Neut % (Auto) 44.3 % (16.0-70.0); Platelet Count 145 th/mm3 (150-450); Red Blood Count 3.38 mil/mm3 (4.50-5.90); Red Cell Distribution Width 18.6 % (11.6-17.2); White Blood Count 4.4 th/mm3 (4.0-11.0)
[2018-08-16 20:30] LABS: Alanine Aminotransferase 55 U/L (12-78); Albumin 3.9 g/dL (3.4-5.0); Alkaline Phosphatase 52 U/L (45-117); Anion Gap 9 meq/L (5-15); Aspartate Aminotransferase 75 U/L (15-37); Blood Urea Nitrogen 8 mg/dL (7-18); Calcium 8.3 mg/dL (8.5-10.1); Carbon Dioxide 24.4 meq/L (21.0-32.0); Chloride 88 meq/L (98-107); Glomerular Filtration Rate 85 mL/min (>89); Glucose,Random 71 mg/dL (74-106); Potassium 4.5 meq/L (3.5-5.1); Total Protein 7.5 g/dL (6.4-8.2)
[2018-08-16 20:32] LABS: Sodium 121 meq/L (136-145)
--- NOTE | 2018-08-16 21:31 | ECG ---
Date Performed: 08/16/2018 Time Performed: 17:51:52 PTAGE: 57 years EKG: Sinus rhythm NORMAL ECG PREVIOUS TRACING : 10/22/2016 06.00 Since the previous tracing, no significant change noted DOCTOR: Jeffery Wade Interpretating Date/Time 08/16/2018 21:31:11
[2018-08-17] MEDS: Sod Chloride 0.9% Inj 1,000 ML IV.CONT SCH ×2 (02:26→17:09)
[2018-08-17] MEDS: Multivitamin/Minerals Therapeutic Tablet PO SCH (10:02)
[2018-08-17] MEDS: Folic Acid 1 MG Tablet PO SCH (10:02)
[2018-08-17] MEDS: Atenolol 50 MG Tablet PO SCH (10:02)
--- NOTE | 2018-08-17 11:03 | P.HP ---
History of Present Illness Primary Care Physician: Bradly Padilla MD Chief Complaint: Sent here by his primary medical doctor because a low sodium History of Present Illness: 57-year-old male with known history of hypertension, gout, chronic alcohol abuse who presented to the hospital at the request of his primary medical doctor because a low sodium level. Patient was in his normal state of health without any symptoms and he was called by his primary care doctor to go to the hospital because of his sodium level is too low. Patient came to the emergency department had workup done and found that his sodium level is 117. It was then recommended by the ER physician the patient be admitted for further evaluation and management. Patient indicates that he has been hospitalized before in the past because of the low sodium level. He states that it is because of his chronic alcohol use. Patient denies any other symptoms such as headache, visual disturbances, seizures, chest pain, muscle cramps. - Diagnosis (1) Acute hyponatremia (2) Alcohol intoxication Inpatient Certification: I certify that the inpatient services were ordered in accordance with Medicare regulations governing the order. This includes certification that hospital inpatient services are reasonable and necessary and in the case of services not specified as inpatient-only under 42 CFR 419.22(n), that they are appropriately provided as inpatient services in accordance to with the 2-midnight benchmark under 43 CFR 412.3(e) Estimated Total Length of Stay (Days): 2 Plans for Post Hospital Care: Not yet determined Review of Systems All other systems reviewed negative except as stated in HPI COUNT INCLUDES THE [facility] - History History Provided By: Patient - Medical History Medical History: Medical History (Last Reviewed 08/17/18 @ 11:06 by MARTA Goldsmith) COPD (chronic obstructive pulmonary disease) ETOH abuse Gout HTN (hypertension) - Surgical History Surgical History: Surgical History (Last Updated 08/17/18 @ 10:56 by MARTA Goldsmith) History of shoulder surgery History of surgery on arm Hx of appendectomy - Family History Family History: Family History (Last Updated 08/17/18 @ 10:57 by MARTA Goldsmith) Father Family history of hyperlipidemia - Tobacco History Second Hand Smoke Exposure: No Tobacco Use In Past 30 Days: No Smoking Status: Former smoker Number of Pack Years (if former smoker): 40 (Patient quit smoking 10 years ago) - Alcohol History How Often Do You Have a Drink Containing Alcohol: 4 or more times a week ( Patient drinks at least a 12 pack of beer daily) - Substance Use History Substance History: Active Abuse - Substance Use Type Alcohol Status: Active Route Used: By Mouth Frequency: 6-12 a day Reason for Use: Calm Down Comment: pt has 6-10 drinks a day - Travel History Recent Travel in the [place] Within the Last 8 Weeks: No Recent Travel Out of the Country Within the Last 8 Weeks: No - Immunization History Tetanus Immunization: Unsure Hx Influenza Vaccine This Season: Yes Medications and Allergies Active Medications: Active Medications Atenolol (Tenormin) [address] [facility] Last Admin: 08/17/18 10:02 Dose: 100 mg Flumazenil (Romazecon Inj) 0.2 mg IV.PUSH Q1M PRN PRN Reason: OVERSEDATION Folic Acid (Folic Acid) [address] [facility] Stop: 08/22/18 08:59 Last Admin: 08/17/18 10:02 Dose: 1 mg Haloperidol Lactate (Haldol Inj) 1 mg IV.PUSH Q15M PRN PRN Reason: for severe agitation Sodium Chloride (Ns Inj) 1,000 mls @ 125 mls/hr IV.CONT .Q8H [facility] Last Admin: 08/17/18 02:26 Dose: 125 mls/hr Lorazepam (Ativan) 1 mg PO Q4H PRN PRN Reason: for CIWA 8-10 Last Admin: 08/17/18 10:06 Dose: 1 mg Lorazepam (Ativan) 2 mg PO Q2H PRN PRN Reason: for CIWA 11-14 Lorazepam (Ativan Inj) 2 mg IV.PUSH Q2H PRN PRN Reason: for CIWA 11-14 Lorazepam (Ativan Inj) 2 mg IV.PUSH Q15M PRN PRN Reason: for CIWA > 20 Lorazepam (Ativan Inj) 1 mg IV.PUSH Q4H PRN PRN Reason: for CIWA 8-10 Lorazepam (Ativan Inj) 2 mg IV.PUSH Q1H PRN PRN Reason: for CIWA 15-20 Multivitamins/Minerals (Theragran-M) [address] [facility] Stop: 08/22/18 08:59 Last Admin: 08/17/18 10:02 Dose: 1 tab Ondansetron HCl (Zofran Inj) 4 mg IV.PUSH Q6H PRN PRN Reason: NAUSEA OR VOMITING Thiamine HCl (Vitamin B1) [address] [facility] Last Admin: 08/17/18 10:02 Dose: 100 mg Allergies Allergy/AdvReac Type Severity Reaction Status Date / Time No Known Allergies Allergy Verified 08/16/18 15:49 Home Medications Medication Instructions Recorded Confirmed Type allopurinol 0 mg PO DAILY 08/16/18 08/16/18 History atenolol 100 mg PO DAILY 08/16/18 08/16/18 History lisinopril 0 mg PO DAILY 08/16/18 08/16/18 History simvastatin 0 mg PO QPM 08/16/18 08/16/18 History Exam Vital signs: Vital Signs 08/16/18 15:47 08/16/18 17:45 08/16/18 20:28 Temperature 97.6 F 97.9 F Pulse Rate 68 63 68 Respiratory Rate 16 16 18 Blood Pressure 152/74 H 133/77 136/82 Pulse Oximetry 97 97 96 08/16/18 21:13 08/17/18 00:00 08/17/18 03:55 Temperature 97.4 F L 96.1 F L 97.8 F Pulse Rate 59 L 64 68 Respiratory Rate 20 19 18 Blood Pressure 127/70 96/54 L 104/52 L Pulse Oximetry 96 94 L 94 L 08/17/18 08:00 Temperature 98.7 F Pulse Rate 73 Respiratory Rate 20 Blood Pressure 165/77 H Pulse Oximetry 96 Intake & Output 08/16/18 08/17/18 08/17/18 18:59 06:59 18:59 Intake Total 1000 / 1000 Balance 1000 / 1000 Weight 91 kg 89.41 kg Intake: IV 1000 / 1000 NS Inj 1,000 ML @ 125 mls/hr IV 1000 / [address] [facility] Rx#:[id number] Other: Weight On Admission 86.2 kg Narrative: GENERAL: Well-developed, well-nourished, in no acute distress. alert and orientated HEENT: Head is normocephalic without any lesions or masses noted. Facial features are symmetric. Eyes: Pupils equal round reactive to light. Extraocular muscles are intact. Lateral nystagmus. Conjunctivae were clear. Oropharyngeal : Pharynx without any erythema edema. Tongue is midline without deviation. Buccal mucosa is moist without any masses or lesions NECK: Supple without any masses. Trachea midline no deviation. No JVD, no bruits are appreciated CARDIAC: Regular rhythm, regular rate. S1/S2 are heard. No murmurs gallops or rubs. LUNGS: Clear to auscultation bilaterally. No wheeze, rhonchi or rales. No use of accessory muscles on inspiration or expiration. ABDOMEN: Soft, nontender. Nondistended. Bowel sounds heard in all 4 quadrants. No organomegaly or masses. Negative rebound, negative guarding EXTREMITIES: No edema, pulses are equal bilaterally. No cyanosis or clubbing NEUROLOGY: Mood and affect appear appropriate. Cranial nerves II through XII grossly intact. Muscle strength 5/5 in upper and lower extremities bilaterally. Deep tendon reflexes are 2+ in upper and lower extremities bilaterally. 2+ extremity tremors Results - Labs CBC & Chem 7: 08/16/18 19:50 08/16/18 19:50 Labs: Laboratory Results - last 24 hr 08/16/18 08/16/18 08/16/18 17:30 17:30 17:55 CBC w Diff Auto diff final WBC 4.6 RBC 3.21 L Hgb 9.2 L Hct 27.7 L MCV 86.4 MCH 28.7 MCHC 33.2 RDW 18.9 H Plt Count 142 L MPV 7.6 Neut % (Auto) 44.4 Lymph % (Auto) 39.7 [place] % (Auto) 13.2 H Eos % (Auto) 1.7 Baso % (Auto) 1.0 Neut # (Auto) 2.1 Lymph # (Auto) 1.8 [place] # (Auto) 0.6 Eos # (Auto) 0.1 Baso # (Auto) 0.0 WBC Differential . Differential Comment . Sodium 117 L* Potassium 4.3 Chloride 85 L Carbon Dioxide 21.3 Anion Gap 11 BUN 8 Creatinine 0.85 Estimated GFR Greater than 89 POC Glucose Random Glucose 82 Calcium 8.1 L Total Bilirubin 0.9 AST 75 H ALT 55 Alkaline Phosphatase 51 Total Protein 7.3 Albumin 3.9 Ur Collection Type Urine Color Urine Clarity Urine pH Ur Specific [place] Urine Protein Urine Glucose (UA) Urine Ketones Urine Occult Blood Urine Nitrate Urine Bilirubin Urine Urobilinogen Ur Leukocyte Esterase Urine RBC Ur Squamous Epith Cells Ur Microscopic Review Urine Osmolality 154 L Ur Random Sodium Serum Alcohol 306 H 08/16/18 08/16/18 08/16/18 17:55 17:55 19:50 CBC w Diff Auto diff final WBC 4.4 RBC 3.38 L Hgb 9.5 L Hct 29.5 L MCV 87.3 MCH 28.2 MCHC 32.3 RDW 18.6 H Plt Count 145 L MPV 6.8 L Neut % (Auto) 44.3 Lymph % (Auto) 42.6 [place] % (Auto) 11.1 H Eos % (Auto) 1.5 Baso % (Auto) 0.5 Neut # (Auto) 1.9 Lymph # (Auto) 1.9 [place] # (Auto) 0.5 Eos # (Auto) 0.1 Baso # (Auto) 0.0 WBC Differential . Differential Comment . Sodium Potassium Chloride Carbon Dioxide Anion Gap BUN Creatinine Estimated GFR POC Glucose Random Glucose Calcium Total Bilirubin AST ALT Alkaline Phosphatase Total Protein Albumin Ur Collection Type Clean catch Urine Color Yellow Urine Clarity Clear Urine pH 5.5 Ur Specific [place] Less/equal 1.005 Urine Protein Negative Urine Glucose (UA) Negative Urine Ketones Negative Urine Occult Blood Negative Urine Nitrate Negative Urine Bilirubin Negative Urine Urobilinogen 0.2 Ur Leukocyte Esterase Negative Urine RBC 0-3 Ur Squamous Epith Cells 0-5 Ur Microscopic Review Microscopic reviewed Urine Osmolality Ur Random Sodium 18 Serum Alcohol 08/16/18 08/16/18 19:50 22:20 CBC w Diff WBC RBC Hgb Hct MCV MCH MCHC RDW Plt Count MPV Neut % (Auto) Lymph % (Auto) [place] % (Auto) Eos % (Auto) Baso % (Auto) Neut # (Auto) Lymph # (Auto) [place] # (Auto) Eos # (Auto) Baso # (Auto) WBC Differential Differential Comment Sodium 121 L* Potassium 4.5 Chloride 88 L Carbon Dioxide 24.4 Anion Gap 9 BUN 8 Creatinine 0.92 Estimated GFR 85 L POC Glucose 88 Random Glucose 71 L Calcium 8.3 L Total Bilirubin 0.7 AST 75 H ALT 55 Alkaline Phosphatase 52 Total Protein 7.5 Albumin 3.9 Ur Collection Type Urine Color Urine Clarity Urine pH Ur Specific [place] Urine Protein Urine Glucose (UA) Urine Ketones Urine Occult Blood Urine Nitrate Urine Bilirubin Urine Urobilinogen Ur Leukocyte Esterase Urine RBC Ur Squamous Epith Cells Ur Microscopic Review Urine Osmolality Ur Random Sodium Serum Alcohol Caprini VTE Risk Assessment Caprini VTE Risk Assessment: No/Low Risk (score <= 1) Caprini Risk Assessment Model: Point Value = 1 Point Value = 2 Point Value = 3 Point Value = 5 Age 41-60 Minor surgery BMI > 25 kg/m2 Swollen legs Varicose veins or History of unexplained or recurrent spontaneous Oral contraceptives or hormone replacement Sepsis (< 1 month) Serious lung disease, including pneumonia (< 1 month) Abnormal pulmonary function Acute myocardial infarction Congestive heart failure (< 1 month) History of inflammatory bowel disease Medical patient at bed rest Age 61-74 Arthroscopic surgery Major open surgery (> 45 min) Laparoscopic surgery (> 45 min) Malignancy Confined to bed (> 72 hours) Immobilizing plaster cast Central venous access Age >= 75 History of VTE Family history of VTE Factor V Leiden Prothrombin [id number] Lupus anticoagulant Anticardiolipin antibodies Elevated serum homocysteine Heparin-induced thrombocytopenia Other congenital or acquired thrombophilia Stroke (< 1 month) Elective arthroplasty Hip, pelvis, or leg fracture Acute spinal cord injury (< 1 month) Prophylaxis Regimen: Total Risk Factor Score Risk Level Prophylaxis Regimen 0-1 Low Early ambulation 2 Moderate Order ONE of the following: *Sequential Compression Device (SCD) *Heparin 5000 units SQ BID 3-4 Higher Order ONE of the following medications: *Heparin 5000 units SQ TID *Enoxaparin/Lovenox 40 mg SQ daily (WT < 150 kg, CrCl > 30 mL/min) *Enoxaparin/Lovenox 30 mg SQ daily (WT < 150 kg, CrCl > 10-29 mL/min) *Enoxaparin/Lovenox 30 mg SQ BID (WT < 150 kg, CrCl > 30 mL/min) AND/OR *Sequential Compression Device (SCD) 5 or more Highest Order ONE of the following medications: *Heparin 5000 units SQ TID (Preferred with Epidurals) *Enoxaparin/Lovenox 40 mg SQ daily (WT < 150 kg, CrCl > 30 mL/min) *Enoxaparin/Lovenox 30 mg SQ daily (WT < 150 kg, CrCl > 10-29 mL/min) *Enoxaparin/Lovenox 30 mg SQ BID (WT < 150 kg, CrCl > 30 mL/min) AND *Sequential Compression Device (SCD) Assessment and Plan - Assessment (1) Acute hyponatremia Code(s): E87.1 - Hypo-osmolality and hyponatremia Status: Acute (2) Alcohol intoxication Code(s): F10.929 - Alcohol use, unspecified with intoxication, unspecified Status: Acute - Plan Hyponatremia -Patient has recurrent hyponatremia secondary to increased fluid/alcohol use. This is recurrent for the patient -Continue IV fluids for at least 1 more liter. -Fluid restriction 1500 cc daily -Continue to monitor sodium level every 6 hours -Counseled patient on fluid restriction, decrease alcohol intake. Acute alcohol intoxication and chronic alcohol abuse patient -[facility] protocol -Start Librium 25 mg every 6 hrs -Seizure/withdrawal precautions -Counseled patient on cessation, however patient states that he does not plan on discontinuing alcohol. But he is in agreement to decreasing the amount on a daily basis Hypertension, hyperlipidemia, chronic obstructive pulmonary disease -Continue home medications -Monitor O2 saturations and start oxygen if needed -Duo nebs as needed DVT prevention -Subcutaneous heparin (2) Alcohol intoxication Qualifiers: Complication of substance-induced condition: with unspecified complication Qualified Code(s): F10.929 - Alcohol use, unspecified with intoxication, unspecified
[2018-08-17 14:21] LABS: Calcium 8.3 mg/dL (8.5-10.1); Carbon Dioxide 27.9 meq/L (21.0-32.0); Potassium 4.6 meq/L (3.5-5.1)
[2018-08-17 16:51] LABS: Potassium 4.6 meq/L (3.5-5.1)
[2018-08-17 16:54] LABS: Calcium 8.2 mg/dL (8.5-10.1)
[2018-08-17 16:55] LABS: Carbon Dioxide 24.1 meq/L (21.0-32.0)
[2018-08-17] MEDS: chlordiazePOXIDE 25 MG Capsule PO SCH ×2 (17:29)
[2018-08-17 22:37] LABS: Potassium 4.3 meq/L (3.5-5.1)
[2018-08-17 22:39] LABS: Calcium 8.8 mg/dL (8.5-10.1)
[2018-08-17 22:40] LABS: Carbon Dioxide 25.3 meq/L (21.0-32.0)
[2018-08-18] MEDS: chlordiazePOXIDE 25 MG Capsule PO SCH ×2 (00:26→06:16)
[2018-08-18 06:41] LABS: Baso % (Auto) 0.6 % (0.0-2.0); Eos % (Auto) 1.6 % (0.0-4.0); Hematocrit 28.6 % (39.0-51.0); Hemoglobin 9.5 gm/dL (13.0-17.0); Lymph # (Auto) 0.7 th/mm3 (1.0-4.8); Lymph % (Auto) 24.5 % (9.0-44.0); Mean Corpuscular HGB Conc 33.2 % (32.0-36.0); Mean Corpuscular Hemoglobin 29.1 pg (27.0-34.0); Mean Corpuscular Volume 87.6 fL (80.0-100.0); Mean Platelet Volume 8.2 fL (7.0-11.0); Mono # (Auto) 0.5 th/mm3 (0.0-0.9); Mono % (Auto) 17.8 % (0.0-8.0); Neut # (Auto) 1.8 th/mm3 (1.8-7.7); Neut % (Auto) 55.5 % (16.0-70.0); Platelet Count 97 th/mm3 (150-450); Red Blood Count 3.26 mil/mm3 (4.50-5.90); Red Cell Distribution Width 18.6 % (11.6-17.2)
[2018-08-18 06:48] LABS: Potassium 4.1 meq/L (3.5-5.1)
[2018-08-18 06:52] LABS: Calcium 8.8 mg/dL (8.5-10.1)
[2018-08-18 06:53] LABS: Carbon Dioxide 25.7 meq/L (21.0-32.0)
[2018-08-18 07:31] LABS: Ovalocytes 1+; Platelet Morphology Normal (Normal)
--- NOTE | 2018-08-18 08:24 | P.DS ---
Date of admission: 08/16/18 19:17 Primary care physician: Bradly Padilla MD Attending physician on discharge: Donna Allen Anticipated date of discharge: 08/18/18 Brief History from admission: 57-year-old male with known history of hypertension, gout, chronic alcohol abuse who presented to the hospital at the request of his primary medical doctor because a low sodium level. Patient was in his normal state of health without any symptoms and he was called by his primary care doctor to go to the hospital because of his sodium level is too low. Patient came to the emergency department had workup done and found that his sodium level is 117. It was then recommended by the ER physician the patient be admitted for further evaluation and management. Patient indicates that he has been hospitalized before in the past because of the low sodium level. He states that it is because of his chronic alcohol use. Patient denies any other symptoms such as headache, visual disturbances, seizures, chest pain, muscle cramps. DS: Diagnosis - Discharge Diagnosis (1) Acute hyponatremia Status: Acute (2) Alcohol intoxication Status: Acute DS: Summary Hospital Course: 57-year-old male with known history of hypertension, gout, chronic alcohol abuse who presented to the hospital at the request of his primary medical doctor because of low sodium level. Patient states that this is not his first time of developing this condition and that it has happened multiple times due to his daily alcohol consumption of at least 12 beers daily. I did residential counselor the patient extensively on low sodium level associated with polydipsia, he does understand. We discussed multiple ways in order for him to maintain healthy sodium level with use of sports drinks with electrolytes. Patient does understand. Did discuss with him that he needed to quit using alcohol is causing multiple clinical problems associated with the hyponatremia, withdrawal symptoms. Patient states that he does not plan on quit drinking. He will agreed to cut back a little. During his stay in the hospital patient was started on a CIWA protocol. Patient has not required any Ativan in almost 24 hours. Patient states that he is feeling much better. No significant signs of withdrawal upon evaluating the patient this morning. Discussed with the patient discharging home and following up with his regular medical doctor. Patient is agreement with plan at this time. We will plan discharge accordingly. Patient is clinically stable at this time. - Time Spent with Patient Total time spent providing and/or coordinating discharge services: Greater than 30 minutes - Quality: VTE Deep Vein Thrombosis/Pulmonary Embolism Present on Admission: No Exam Vital signs: Vital Signs 08/17/18 12:00 08/17/18 20:00 08/17/18 20:32 Temperature 98.5 F 97.9 F Pulse Rate 78 77 Respiratory Rate 20 18 18 Blood Pressure 143/76 H 136/82 Pulse Oximetry 97 97 08/18/18 00:00 Temperature 98.3 F Pulse Rate 71 Respiratory Rate 18 Blood Pressure 135/61 Pulse Oximetry 95 Intake & Output 08/17/18 08/18/18 08/18/18 18:59 06:59 18:59 Intake Total 2010 490 / 490 Balance 2010 490 / 490 Weight 88.1 kg Intake: IV 1000 / 1000 250 / 250 NS Inj 1,000 ML @ 125 mls/hr IV 1000 / 1000 250 / 250 .CONT .Q8H [facility] Rx#:[id number] Oral 1011 / 1011 240 / 240 Other: # Voids 14 1 # Bowel Movements 2 Narrative: GENERAL: Well-developed, well-nourished, in no acute distress. alert and orientated HEENT: Head is normocephalic without any lesions or masses noted. Facial features are symmetric. Eyes: Extraocular muscles are intact. Conjunctivae were clear. NECK: Supple without any masses. Trachea midline no deviation. No JVD, CARDIAC: Regular rhythm, regular rate. S1/S2 are heard. No murmurs gallops or rubs. LUNGS: Clear to auscultation bilaterally. No wheeze, rhonchi or rales. No use of accessory muscles on inspiration or expiration. ABDOMEN: Soft, nontender. Nondistended. Bowel sounds heard in all 4 quadrants. No organomegaly or masses. Negative rebound, negative guarding EXTREMITIES: No edema, pulses are equal bilaterally. No cyanosis or clubbing NEUROLOGY: Mood and affect appear appropriate. Cranial nerves II through XII grossly intact. Moving all extremities, speech is clear. No obvious tremors at this time Results Procedures completed during hospitalization: None Labs on day of discharge: Labs from last 24 hours 08/18/18 08/18/18 08/17/18 05:05 05:05 22:23 CBC w Diff Slide review pending WBC 3.0 L RBC 3.26 L Hgb 9.5 L Hct 28.6 L MCV 87.6 MCH 29.1 MCHC 33.2 RDW 18.6 H Plt Count 97 L D MPV 8.2 Neut % (Auto) 55.5 Lymph % (Auto) 24.5 [place] % (Auto) 17.8 H Eos % (Auto) 1.6 Baso % (Auto) 0.6 Neut # (Auto) 1.8 Lymph # (Auto) 0.7 L [place] # (Auto) 0.5 Eos # (Auto) 0.0 Baso # (Auto) 0.0 WBC Differential . Diff Scan Auto diff confirmed Differential Comment . Platelet Estimate Low L Platelet Morphology Normal Ovalocytes 1+ H Sodium 132 L 131 L Potassium 4.1 4.3 Chloride 97 L 97 L Carbon Dioxide 25.7 25.3 Anion Gap 9 9 BUN 10 11 Creatinine 0.89 0.93 Estimated GFR 88 L 84 L POC Glucose Random Glucose 88 82 Calcium 8.8 8.8 08/17/18 08/17/18 08/17/18 21:15 16:28 13:58 CBC w Diff WBC RBC Hgb Hct MCV MCH MCHC RDW Plt Count MPV Neut % (Auto) Lymph % (Auto) [place] % (Auto) Eos % (Auto) Baso % (Auto) Neut # (Auto) Lymph # (Auto) [place] # (Auto) Eos # (Auto) Baso # (Auto) WBC Differential Diff Scan Differential Comment Platelet Estimate Platelet Morphology Ovalocytes Sodium 133 L 132 L D Potassium 4.6 4.6 Chloride 100 98 D Carbon Dioxide 24.1 27.9 Anion Gap 9 6 BUN 11 11 Creatinine 0.96 1.00 Estimated GFR 81 L 77 L POC Glucose 91 Random Glucose 85 122 H Calcium 8.2 L 8.3 L Discharge Plan - Discharge Disposition Patient Disposition: 01 Discharge Home - Discharge Condition Condition: Stable - Discharge Order Discharge Orders: Discharge Order (Routine); Ordered 08/18/18 Ordered By: Osman Sood ED Use Only Admit Order (Routine); Ordered 08/16/18 Ordered By: Sal Jenkins - Discharge Details Anticipated Discharge Date: 08/18/18 - Physicians Team Primary Care Provider: Bradly Padilla Attending Provider: Donna Allen Other Providers: [employer]
[2018-08-18] MEDS: Multivitamin/Minerals Therapeutic Tablet PO SCH (09:30)
[2018-08-18] MEDS: Folic Acid 1 MG Tablet PO SCH (09:31)
[2018-08-18] MEDS: Atenolol 50 MG Tablet PO SCH (09:31)
[2018-08-18 09:40] VITALS: BP 136/77; PULSE 77; RESP 20; TEMP 97.4; O2SAT 96
== END 2018-08-18 10:07 | disposition home or self-care (01) ==
LOC: PHED 15:43 → PHEDA 19:17 → PH3 20:30
PROVIDERS: ADMIT Hospitalist; ATTEND Hospitalist